=== PATIENT | male | born 1960 | race Caucasian/White ===

== ENCOUNTER 2017-08-11 16:34 | Inpatient (IN) | payer MEDICAID ==
[~2017-08-11] VITALS: Ht 5787.1 cm; Wt 134.3 kg
[2017-08-11] MEDS ORDERED: pantoprazole 40 MG vial IV ONE (16:55)
[2017-08-11] MEDS ORDERED: magnesium 4gm in 100ml NS 100 ML IV PRN (17:30)
[2017-08-11] MEDS ORDERED: haloperidol lactate 5mg/ml inj IM PRN (17:30)
[2017-08-11] MEDS ORDERED: magnesium Cl slow-release 64mg tablet PO PRN (17:30)
[2017-08-11] MEDS ORDERED: mag hydrox/Alum hydrox/simeth 30ml oral suspension PO PRN (17:30)
[2017-08-11] MEDS ORDERED: magnesium hydroxide 30ml (MOM) UD suspension PO PRN (17:30)
[2017-08-11] MEDS ORDERED: LORazepam 1 MG tablet PO PRN (17:30)
[2017-08-11] MEDS ORDERED: potassium Cl 40MEQ/NS 500ml 500 ML IV PRN ×2 (17:30)
[2017-08-11] MEDS ORDERED: dextrose 50%-water 50ml dispensing syringe IV PRN (17:30)
[2017-08-11] MEDS ORDERED: ondansetron/PF 4mg/2ml inj IV PRN (17:30)
[2017-08-11] MEDS ORDERED: magnesium 2GM in 50ml NS 50 ML IV PRN (17:30)
[2017-08-11] MEDS ORDERED: potassium Cl 20 mEq SR tablet PO PRN ×2 (17:30)
[2017-08-11] MEDS ORDERED: haloperidol 5mg tablet PO PRN (17:30)
[2017-08-11] MEDS ORDERED: thiamine 100mg/ml 2ml inj. IV ONE (17:30)
[2017-08-11] MEDS ORDERED: morphine 4 MG/ML inj SYRINge IV PRN (17:30)
[2017-08-11] MEDS ORDERED: acetaminophen 325mg tablet PO PRN (17:30)
[2017-08-11] MEDS ORDERED: LORazepam 2 mg/ml vial IV PRN (17:30)
[2017-08-11] MEDS ORDERED: NO HOME MEDS (18:05)
[2017-08-11 18:14] LABS: RED BLOOD COUNT 2.99 X10'6 (4.70-6.10); RETICULOCYTE % (AUTO) 2.9 % (0.5-1.5)
[2017-08-11 18:22] LABS: HEMOGLOBIN A1C 4.5 % (4.5-6.2)
[2017-08-11 18:24] LABS: INR 1.9 INR; PARTIAL THROMBOPLASTIN TIME 33 SECONDS (22-32); PROTHROMBIN TIME 19.2 SECONDS (9.0-12.0)
[2017-08-11 18:26] LABS: BILIRUBIN,DIRECT 4.5 MG/DL (0-0.3)
[2017-08-11 20:30] VITALS: BP 142/70
[2017-08-11] MEDS: morphine 4 MG/ML inj SYRINge IV PRN (22:14)
[2017-08-12] VITALS (10 sets, daily range): BP systolic 106–158; BP diastolic 52–94
[2017-08-12 05:33] LABS: BASOPHILS % (AUTO) 0.3 % (0-1); EOSINOPHILS # (AUTO) 0.1 X10'3 (0-0.9); EOSINOPHILS % (AUTO) 1.4 % (0-6); HEMATOCRIT 28.5 % (42.0-52.0); LYMPHOCYTES # (AUTO) 1.5 X10'3 (1.1-4.8); LYMPHOCYTES % (AUTO) 32.7 % (21-51); MEAN CORPUSCULAR HEMOGLOBIN 39.5 PG (27.0-31.0); MEAN PLATELET VOLUME 7.8 FL (7.4-10.4); MONOCYTES # (AUTO) 0.5 X10'3 (0-0.9); NEUTROPHILS # (AUTO) 2.5 X10'3 (1.8-7.7); NEUTROPHILS % (AUTO) 54.6 % (42-75); PLATELET COUNT 55 X10'3 (140-440); RED BLOOD COUNT 2.52 X10'6 (4.70-6.10); WHITE BLOOD COUNT 4.6 X10'3 (4.5-11.0)
[2017-08-12 05:44] LABS: INR 2.1 INR; PARTIAL THROMBOPLASTIN TIME 40 SECONDS (22-32); PROTHROMBIN TIME 21.4 SECONDS (9.0-12.0)
[2017-08-12 05:54] LABS: ALANINE AMINOTRANSFERASE 98 U/L (12-78); ALBUMIN 1.7 G/DL (3.4-5.0); ALKALINE PHOSPHATASE 110 IU/L (46-116); ANION GAP 10 (8-16); ASPARTATE AMINO TRANSFERASE 150 U/L (10-37); BILIRUBIN,TOTAL 6.7 MG/DL (0.1-1.0); BLOOD UREA NITROGEN 12 MG/DL (7-18); BUN/CREATININE RATIO 14.3 (5.4-32.0); CHLORIDE 102 MMOL/L (99-107); CREATININE 0.84 MG/DL (0.60-1.10); GLUCOSE 120 MG/DL (70-104); HDL CHOLESTEROL 16 MG/DL (35-60); LDL CHOLESTEROL 67 MG/DL (50-100); MAGNESIUM 1.7 MG/DL (1.5-2.4); POTASSIUM 3.6 MMOL/L (3.5-5.1); SODIUM 134 MMOL/L (135-145); TOTAL CARBON DIOXIDE 22.5 MMOL/L (24-32); eGFR > 90 ML/MIN
[2017-08-12 06:20] LABS: ALBUMIN/GLOBULIN RATIO 0.4 (1.1-1.5); CHOL/HDL RATIO 6.3 (0.00-4.99); CHOLESTEROL 101 MG/DL (0-200); TOTAL PROTEIN 6.5 G/DL (6.4-8.2); TRIGLYCERIDES 56 MG/DL (20-135)
[2017-08-12] MEDS: pantoprazole 40 MG vial IV SCH (07:33)
[2017-08-12] MEDS: K and/or MAG REPLACEMENT MC SCH (07:41)
[2017-08-12] MEDS ORDERED: SINCALIDE IV ONE (07:45)
[2017-08-12] MEDS ORDERED: NORMAL SALINE IV ONE (07:45)
[2017-08-12 08:13] LABS: LIPASE 738 U/L (73-393)
[2017-08-12] MEDS ORDERED: LIDOcaine 1%/PF (10mg/ml) 5ml vial ONE (09:34)
[2017-08-12 11:39] LABS: GLUCOSE,BODY FLUID 147 MG/DL
[2017-08-12 11:42] LABS: LYMPHOCYTES,BODY FLUID 39 %; MONOCYTES,BODY FLUID 53 %; NEUTROPHILS,BODY FLUID 8 %
[2017-08-12 11:43] LABS: BFAPPEAR HAZY; BFCOLOR YELLOW
[2017-08-12 11:44] LABS: BF MESOTHELIAL CELLS MANY; BF RBC COUNT 573 /CU MM; BF WBC COUNT 66 /CU MM (0-1000); BFVOLUME 60 ML
[2017-08-12 12:03] LABS: TOTAL PROTEIN,BODY FLUID < 2.0 G/DL
[2017-08-12] MEDS: morphine 4 MG/ML inj SYRINge IV PRN (18:49)
[2017-08-13] VITALS: BP 124/79
[2017-08-13] MEDS: morphine 4 MG/ML inj SYRINge IV PRN (01:50)
[2017-08-13 05:37] LABS: BASOPHILS % (AUTO) 0.3 % (0-1); EOSINOPHILS # (AUTO) 0.1 X10'3 (0-0.9); EOSINOPHILS % (AUTO) 2.1 % (0-6); HEMATOCRIT 29.7 % (42.0-52.0); HEMOGLOBIN 10.4 g/dl (14.0-17.9); LYMPHOCYTES # (AUTO) 1.5 X10'3 (1.1-4.8); LYMPHOCYTES % (AUTO) 36.8 % (21-51); MEAN CORPUSCULAR HEMOGLOBIN 39.3 PG (27.0-31.0); MEAN CORPUSCULAR HGB CONC 34.8 % (33.0-36.5); MEAN PLATELET VOLUME 7.5 FL (7.4-10.4); MONOCYTES # (AUTO) 0.5 X10'3 (0-0.9); NEUTROPHILS % (AUTO) 48.8 % (42-75); RED BLOOD COUNT 2.63 X10'6 (4.70-6.10); RED CELL DISTRIBUTION WIDTH 16.2 % (11.5-14.5); WHITE BLOOD COUNT 4.1 X10'3 (4.5-11.0)
[2017-08-13 05:41] LABS: PLATELET COUNT 43 X10'3 (140-440)
[2017-08-13 05:48] LABS: PARTIAL THROMBOPLASTIN TIME 41 SECONDS (22-32); PROTHROMBIN TIME 20.4 SECONDS (9.0-12.0)
[2017-08-13 05:58] LABS: ALANINE AMINOTRANSFERASE 90 U/L (12-78); ALBUMIN 1.7 G/DL (3.4-5.0); ALKALINE PHOSPHATASE 105 IU/L (46-116); ANION GAP 7 (8-16); ASPARTATE AMINO TRANSFERASE 126 U/L (10-37); BILIRUBIN,TOTAL 5.8 MG/DL (0.1-1.0); BLOOD UREA NITROGEN 9 MG/DL (7-18); CALCIUM 7.9 MG/DL (8.5-10.1); CHLORIDE 102 MMOL/L (99-107); CREATININE 0.75 MG/DL (0.60-1.10); GLUCOSE 106 MG/DL (70-104); LIPASE 454 U/L (73-393); MAGNESIUM 1.6 MG/DL (1.5-2.4); POTASSIUM 3.7 MMOL/L (3.5-5.1); SODIUM 133 MMOL/L (135-145); TOTAL CARBON DIOXIDE 23.8 MMOL/L (24-32); eGFR > 90 ML/MIN
[2017-08-13 06:02] LABS: ALBUMIN/GLOBULIN RATIO 0.4 (1.1-1.5); TOTAL PROTEIN 6.2 G/DL (6.4-8.2)
[2017-08-13 06:10] LABS: ANISOCYTOSIS 1+; PLATELET ESTIMATE DECREASED; TARGET CELLS FEW
[2017-08-13 06:55] VITALS: BP 104/62
[2017-08-13] MEDS: pantoprazole 40 MG vial IV SCH (07:26)
[2017-08-13] MEDS: K and/or MAG REPLACEMENT MC SCH (07:32)
[2017-08-13] MEDS ORDERED: PANT40SU2 PO (08:53)
[2017-08-13 11:30] VITALS: BP 131/89
[2017-08-14 11:43] LABS: HBSAG SCREEN Negative (Negative); HEP A AB, IGM Negative (Negative); HEP B CORE AB, IGM Negative (Negative); HEP B CORE AB, TOT Negative (Negative); HEPATITIS C ANTIBODY 0.2 s/co ratio (0.0-0.9)
== END 2017-08-13 12:40 | disposition home or self-care (01) | DRG 264 ==
LOC: ER 16:35 → ED HOLD 17:28 → EDBEDREQ 19:32 → MED 3N 20:49
PROVIDERS: ADMIT Legal Medicine; ATTEND Internal Medicine
PROC: 0W9G3ZX Drainage of Peritoneal Cavity, Percutaneous Approach, Diagnostic (ICD-10-PCS; principal; 2017-08-12)
PROC: CF141ZZ Planar Nuclear Medicine Imaging of Gallbladder using Technetium 99m (Tc-99m) (ICD-10-PCS; 2017-08-12)
DX: R18.8 Other ascites (principal); D69.59 Other secondary thrombocytopenia; K85.90 Acute pancreatitis without necrosis or infection, unspecified; E66.01 Morbid (severe) obesity due to excess calories; E87.1 Hypo-osmolality and hyponatremia; R16.2 Hepatomegaly with splenomegaly, not elsewhere classified; K70.9 Alcoholic liver disease, unspecified; F10.20 Alcohol dependence, uncomplicated; D63.8 Anemia in other chronic diseases classified elsewhere; E78.00 Pure hypercholesterolemia, unspecified; F41.9 Anxiety disorder, unspecified; I10 Essential (primary) hypertension; Z86.73 Personal history of transient ischemic attack (TIA), and cerebral infarction without residual deficits; Z79.899 Other long term (current) drug therapy
CPT/HCPCS: 36415; 49083; 76700; 78227; 80053; 80061; 80074; 82248; 82607; 82746; 82945; 82948; 83036; 83540; 83550; 83690; 83735; 83880; 84155; 84157; 84165; 85025; 85045; 85610; 85730; 86704; 87070; 89051; 93005; 93306; 99285; A4421; A6449; A9537; C9113; J2001; J2270; J2805; J3411; J7040

== ENCOUNTER → 2017-08-11 | Emergency (ER) | payer MEDICAID ==
[~2017-08-11] VITALS: Ht 175.3 cm; Wt 134.3 kg
[~2017-08-11] MED LIST: NO HOME MEDS; PANT40SU2 PO; iohexol 300mg/ml 100ml inj. ONE
[2017-08-11 09:47] LABS: BASOPHILS % (AUTO) 0.3 % (0-1); EOSINOPHILS # (AUTO) 0.1 X10'3 (0-0.9); EOSINOPHILS % (AUTO) 1.3 % (0-6); HEMATOCRIT 36.1 % (42.0-52.0); HEMOGLOBIN 12.7 g/dl (14.0-17.9); LYMPHOCYTES # (AUTO) 1.3 X10'3 (1.1-4.8); LYMPHOCYTES % (AUTO) 17.7 % (21-51); MEAN CORPUSCULAR HEMOGLOBIN 39.1 PG (27.0-31.0); MEAN CORPUSCULAR HGB CONC 35.2 % (33.0-36.5); MEAN CORPUSCULAR VOLUME 111.2 FL (78-98); MEAN PLATELET VOLUME 7.7 FL (7.4-10.4); MONOCYTES # (AUTO) 0.5 X10'3 (0-0.9); MONOCYTES % (AUTO) 6.1 % (2-12); NEUTROPHILS # (AUTO) 5.6 X10'3 (1.8-7.7); NEUTROPHILS % (AUTO) 74.6 % (42-75); PLATELET COUNT 91 X10'3 (140-440); RED BLOOD COUNT 3.25 X10'6 (4.70-6.10); RED CELL DISTRIBUTION WIDTH 16.4 % (11.5-14.5); WHITE BLOOD COUNT 7.5 X10'3 (4.5-11.0)
[2017-08-11 09:58] LABS: INR 1.8 INR; PARTIAL THROMBOPLASTIN TIME 32 SECONDS (22-32); PLATELET ESTIMATE DECREASED
[2017-08-11 10:00] LABS: ANISOCYTOSIS 1+; POLYCHROMASIA 1+
[2017-08-11 10:01] LABS: ALANINE AMINOTRANSFERASE 130 U/L (12-78); ALBUMIN 2.4 G/DL (3.4-5.0); ALKALINE PHOSPHATASE 172 IU/L (46-116); ANION GAP 11 (8-16); ASPARTATE AMINO TRANSFERASE 215 U/L (10-37); BILIRUBIN,TOTAL 7.2 MG/DL (0.1-1.0); BLOOD UREA NITROGEN 12 MG/DL (7-18); BUN/CREATININE RATIO 10.8 (5.4-32.0); CALCIUM 8.6 MG/DL (8.5-10.1); CHLORIDE 98 MMOL/L (99-107); CREATININE 1.11 MG/DL (0.60-1.10); GLUCOSE 138 MG/DL (70-104); ROULEAUX 1+; SODIUM 133 MMOL/L (135-145); SPHEROCYTES FEW; TARGET CELLS 1+; TOTAL CARBON DIOXIDE 23.8 MMOL/L (24-32); eGFR 69 ML/MIN
[2017-08-11 10:03] LABS: ALBUMIN/GLOBULIN RATIO 0.4 (1.1-1.5); POTASSIUM 3.6 MMOL/L (3.5-5.1); TOTAL PROTEIN 8.8 G/DL (6.4-8.2)
[2017-08-11 10:36] LABS: LIPASE 1098 U/L (73-393)
[2017-08-11 13:45] VITALS: BP 164/82
== END | disposition left against medical advice (07) ==
LOC: ER 09:03
DX: K85.90 Acute pancreatitis without necrosis or infection, unspecified (principal); R14.0 Abdominal distension (gaseous); E78.00 Pure hypercholesterolemia, unspecified; I10 Essential (primary) hypertension; Z86.73 Personal history of transient ischemic attack (TIA), and cerebral infarction without residual deficits
CPT/HCPCS: 36415; 71045; 74177; 80053; 83690; 84484; 85025; 85610; 85730; 93005; 99285; Q9967

== ENCOUNTER 2017-08-13 19:25 | Inpatient (IN) | payer MEDICAID ==
[~2017-08-13] VITALS: Ht 175.3 cm; Wt 126.8 kg
[~2017-08-13 19:25] MED LIST changes: -iohexol 300mg/ml 100ml inj. ONE
[2017-08-13 21:27] LABS: BASOPHILS % (AUTO) 0.3 % (0-1); EOSINOPHILS # (AUTO) 0.1 X10'3 (0-0.9); EOSINOPHILS % (AUTO) 1.5 % (0-6); HEMATOCRIT 36.7 % (42.0-52.0); HEMOGLOBIN 12.7 g/dl (14.0-17.9); LYMPHOCYTES # (AUTO) 1.6 X10'3 (1.1-4.8); LYMPHOCYTES % (AUTO) 24.6 % (21-51); MEAN CORPUSCULAR HEMOGLOBIN 39.3 PG (27.0-31.0); MEAN CORPUSCULAR HGB CONC 34.5 % (33.0-36.5); MEAN CORPUSCULAR VOLUME 113.7 FL (78-98); MEAN PLATELET VOLUME 8.1 FL (7.4-10.4); MONOCYTES # (AUTO) 0.8 X10'3 (0-0.9); MONOCYTES % (AUTO) 11.5 % (2-12); NEUTROPHILS # (AUTO) 4.2 X10'3 (1.8-7.7); NEUTROPHILS % (AUTO) 62.1 % (42-75); PLATELET COUNT 88 X10'3 (140-440); RED BLOOD COUNT 3.23 X10'6 (4.70-6.10); RED CELL DISTRIBUTION WIDTH 16.4 % (11.5-14.5); WHITE BLOOD COUNT 6.7 X10'3 (4.5-11.0)
[2017-08-13 21:32] LABS: INR 1.9 INR; PARTIAL THROMBOPLASTIN TIME 33 SECONDS (22-32)
[2017-08-13 21:44] LABS: ALANINE AMINOTRANSFERASE 118 U/L (12-78); ALBUMIN 2.3 G/DL (3.4-5.0); ALBUMIN/GLOBULIN RATIO 0.4 (1.1-1.5); ALKALINE PHOSPHATASE 179 IU/L (46-116); ANION GAP 10 (8-16); ASPARTATE AMINO TRANSFERASE 173 U/L (10-37); BILIRUBIN,TOTAL 6.2 MG/DL (0.1-1.0); BLOOD UREA NITROGEN 10 MG/DL (7-18); BUN/CREATININE RATIO 9.6 (5.4-32.0); CALCIUM 8.8 MG/DL (8.5-10.1); CHLORIDE 99 MMOL/L (99-107); CREATININE 1.04 MG/DL (0.60-1.10); GLUCOSE 125 MG/DL (70-104); LIPASE 827 U/L (73-393); POTASSIUM 4.9 MMOL/L (3.5-5.1); SODIUM 135 MMOL/L (135-145); TOTAL CARBON DIOXIDE 25.6 MMOL/L (24-32); TOTAL PROTEIN 8.2 G/DL (6.4-8.2); eGFR 74 ML/MIN
[2017-08-13] MEDS ORDERED: ondansetron/PF 4mg/2ml inj IV ONE ×2 (22:35→23:25)
[2017-08-13] MEDS ORDERED: normal saline 1000ML IV soln IVB ONE (22:35)
[2017-08-14] MEDS ORDERED: potassium Cl 20 mEq SR tablet PO PRN ×2 (00:15)
[2017-08-14] MEDS ORDERED: ondansetron/PF 4mg/2ml inj IV PRN (00:15)
[2017-08-14] MEDS ORDERED: potassium Cl 40MEQ/NS 500ml 500 ML IV PRN ×2 (00:15)
[2017-08-14] MEDS: K and/or MAG REPLACEMENT MC SCH (08:00)
[2017-08-14] MEDS: pantoprazole 40mg Tablet.DR PO SCH (08:42)
[2017-08-14] MEDS: spironolactone 50 MG tablet PO SCH (08:43)
[2017-08-14] MEDS: furosemide 20MG tablet PO SCH (08:43)
[2017-08-14] MEDS: HYDROcodone/acetaminophen 5mg/325mg tablet PO PRN ×2 (11:40→17:51)
[2017-08-14 13:37] VITALS: BP 169/92
[2017-08-14 15:50] VITALS: BP 142/74
[2017-08-14] MEDS: nystatin 15 GM powder TP SCH ×2 (17:29→21:00)
[2017-08-14 20:00] VITALS: BP 151/86
[2017-08-14 23:30] VITALS: BP 139/77
[2017-08-15] MEDS: Melatonin 3mg tablet PO PRN (00:12)
[2017-08-15] MEDS: HYDROcodone/acetaminophen 5mg/325mg tablet PO PRN ×3 (00:13→16:55)
[2017-08-15] MEDS: acetaminophen 325mg tablet PO PRN (05:41)
[2017-08-15 05:56] LABS: BASOPHILS % (AUTO) 0.5 % (0-1); EOSINOPHILS # (AUTO) 0.1 X10'3 (0-0.9); EOSINOPHILS % (AUTO) 1.8 % (0-6); HEMATOCRIT 28.8 % (42.0-52.0); HEMOGLOBIN 10.1 g/dl (14.0-17.9); LYMPHOCYTES # (AUTO) 1.4 X10'3 (1.1-4.8); LYMPHOCYTES % (AUTO) 37.4 % (21-51); MEAN CORPUSCULAR HEMOGLOBIN 39.5 PG (27.0-31.0); MEAN CORPUSCULAR HGB CONC 35.1 % (33.0-36.5); MEAN CORPUSCULAR VOLUME 112.7 FL (78-98); MEAN PLATELET VOLUME 7.9 FL (7.4-10.4); MONOCYTES # (AUTO) 0.5 X10'3 (0-0.9); MONOCYTES % (AUTO) 13.9 % (2-12); NEUTROPHILS # (AUTO) 1.8 X10'3 (1.8-7.7); NEUTROPHILS % (AUTO) 46.4 % (42-75); PLATELET COUNT 58 X10'3 (140-440); RED BLOOD COUNT 2.56 X10'6 (4.70-6.10); WHITE BLOOD COUNT 3.8 X10'3 (4.5-11.0)
[2017-08-15 06:04] LABS: ALANINE AMINOTRANSFERASE 83 U/L (12-78); ALBUMIN 1.8 G/DL (3.4-5.0); ALKALINE PHOSPHATASE 112 IU/L (46-116); ANION GAP 7 (8-16); ASPARTATE AMINO TRANSFERASE 111 U/L (10-37); BILIRUBIN,TOTAL 5.7 MG/DL (0.1-1.0); BLOOD UREA NITROGEN 11 MG/DL (7-18); BUN/CREATININE RATIO 11.8 (5.4-32.0); CALCIUM 7.8 MG/DL (8.5-10.1); CHLORIDE 100 MMOL/L (99-107); CREATININE 0.93 MG/DL (0.60-1.10); GLUCOSE 99 MG/DL (70-104); POTASSIUM 3.8 MMOL/L (3.5-5.1); SODIUM 132 MMOL/L (135-145); TOTAL CARBON DIOXIDE 24.6 MMOL/L (24-32); eGFR 84 ML/MIN
[2017-08-15 06:06] LABS: ALBUMIN/GLOBULIN RATIO 0.4 (1.1-1.5); TOTAL PROTEIN 6.3 G/DL (6.4-8.2)
[2017-08-15 07:03] LABS: ANISOCYTOSIS 1+; PLATELET ESTIMATE DECREASED; POLYCHROMASIA FEW
[2017-08-15 07:49] VITALS: BP 128/63
[2017-08-15] MEDS: K and/or MAG REPLACEMENT MC SCH (08:00)
[2017-08-15] MEDS: spironolactone 50 MG tablet PO SCH (08:09)
[2017-08-15] MEDS: pantoprazole 40mg Tablet.DR PO SCH (08:09)
[2017-08-15] MEDS: furosemide 20MG tablet PO SCH (08:09)
[2017-08-15] MEDS: nystatin 15 GM powder TP SCH ×3 (08:10→21:00)
[2017-08-15 11:00] VITALS: BP 174/85
[2017-08-15 20:00] VITALS: BP 145/82
[2017-08-16] VITALS: BP 120/77
[2017-08-16] MEDS: HYDROcodone/acetaminophen 5mg/325mg tablet PO PRN ×4 (01:10→20:06)
[2017-08-16] MEDS: Melatonin 3mg tablet PO PRN (02:34)
[2017-08-16 06:01] LABS: BASOPHILS % (AUTO) 0.5 % (0-1); EOSINOPHILS # (AUTO) 0.1 X10'3 (0-0.9); HEMATOCRIT 29.5 % (42.0-52.0); HEMOGLOBIN 10.2 g/dl (14.0-17.9); LYMPHOCYTES # (AUTO) 1.3 X10'3 (1.1-4.8); LYMPHOCYTES % (AUTO) 34.9 % (21-51); MEAN CORPUSCULAR HEMOGLOBIN 39.4 PG (27.0-31.0); MEAN CORPUSCULAR HGB CONC 34.8 % (33.0-36.5); MEAN CORPUSCULAR VOLUME 113.4 FL (78-98); MEAN PLATELET VOLUME 8.3 FL (7.4-10.4); MONOCYTES # (AUTO) 0.8 X10'3 (0-0.9); MONOCYTES % (AUTO) 19.6 % (2-12); NEUTROPHILS # (AUTO) 1.7 X10'3 (1.8-7.7); PLATELET COUNT 62 X10'3 (140-440); RED CELL DISTRIBUTION WIDTH 16.1 % (11.5-14.5); WHITE BLOOD COUNT 3.9 X10'3 (4.5-11.0)
[2017-08-16 06:32] LABS: ALANINE AMINOTRANSFERASE 84 U/L (12-78); ALBUMIN 1.8 G/DL (3.4-5.0); ALBUMIN/GLOBULIN RATIO 0.4 (1.1-1.5); ALKALINE PHOSPHATASE 120 IU/L (46-116); ANION GAP 8 (8-16); ASPARTATE AMINO TRANSFERASE 124 U/L (10-37); BILIRUBIN,TOTAL 5.7 MG/DL (0.1-1.0); BLOOD UREA NITROGEN 12 MG/DL (7-18); BUN/CREATININE RATIO 12.1 (5.4-32.0); CALCIUM 7.8 MG/DL (8.5-10.1); CHLORIDE 100 MMOL/L (99-107); CREATININE 0.99 MG/DL (0.60-1.10); GLUCOSE 106 MG/DL (70-104); POTASSIUM 4.8 MMOL/L (3.5-5.1); SODIUM 133 MMOL/L (135-145); TOTAL CARBON DIOXIDE 25.1 MMOL/L (24-32); TOTAL PROTEIN 6.6 G/DL (6.4-8.2); eGFR 78 ML/MIN
[2017-08-16] MEDS: K and/or MAG REPLACEMENT MC SCH ×2 (06:57→08:27)
[2017-08-16 07:21] VITALS: BP 120/57
[2017-08-16] MEDS: pantoprazole 40mg Tablet.DR PO SCH (08:25)
[2017-08-16] MEDS: nystatin 15 GM powder TP SCH ×3 (08:25→20:07)
[2017-08-16] MEDS: furosemide 20MG tablet PO SCH (08:25)
[2017-08-16] MEDS: spironolactone 50 MG tablet PO SCH (08:25)
[2017-08-16 08:30] LABS: TOTAL CELLS COUNTED 100
[2017-08-16 08:33] LABS: ANISOCYTOSIS 1+; PLATELET ESTIMATE DECREASED
[2017-08-16 11:00] VITALS: BP 158/93
[2017-08-16 18:00] VITALS: BP 172/94
[2017-08-16] MEDS: acetaminophen 325mg tablet PO PRN (20:06)
[2017-08-17] VITALS: BP 120/64
[2017-08-17] MEDS: HYDROcodone/acetaminophen 5mg/325mg tablet PO PRN ×2 (03:35→10:21)
[2017-08-17 06:08] LABS: HEMOGLOBIN 10.4 g/dl (14.0-17.9); MEAN CORPUSCULAR HEMOGLOBIN 39.4 PG (27.0-31.0); MEAN CORPUSCULAR HGB CONC 34.7 % (33.0-36.5); MEAN CORPUSCULAR VOLUME 113.4 FL (78-98); MEAN PLATELET VOLUME 8.1 FL (7.4-10.4); PLATELET COUNT 60 X10'3 (140-440); RED BLOOD COUNT 2.65 X10'6 (4.70-6.10); RED CELL DISTRIBUTION WIDTH 15.8 % (11.5-14.5); WHITE BLOOD COUNT 3.3 X10'3 (4.5-11.0)
[2017-08-17 06:31] LABS: ALANINE AMINOTRANSFERASE 77 U/L (12-78); ALBUMIN 1.8 G/DL (3.4-5.0); ALBUMIN/GLOBULIN RATIO 0.4 (1.1-1.5); ALKALINE PHOSPHATASE 113 IU/L (46-116); ANION GAP 9 (8-16); ASPARTATE AMINO TRANSFERASE 100 U/L (10-37); BLOOD UREA NITROGEN 11 MG/DL (7-18); BUN/CREATININE RATIO 12.4 (5.4-32.0); CALCIUM 7.8 MG/DL (8.5-10.1); CHLORIDE 100 MMOL/L (99-107); CREATININE 0.89 MG/DL (0.60-1.10); GLUCOSE 100 MG/DL (70-104); POTASSIUM 3.7 MMOL/L (3.5-5.1); SODIUM 133 MMOL/L (135-145); TOTAL CARBON DIOXIDE 24.2 MMOL/L (24-32); TOTAL PROTEIN 6.6 G/DL (6.4-8.2); eGFR 88 ML/MIN
[2017-08-17 07:00] VITALS: BP 158/88
[2017-08-17 07:38] LABS: ANISOCYTOSIS 1+; PLATELET ESTIMATE DECREASED; TOTAL CELLS COUNTED 100
[2017-08-17] MEDS: pantoprazole 40mg Tablet.DR PO SCH (08:15)
[2017-08-17] MEDS: furosemide 20MG tablet PO SCH (08:16)
[2017-08-17] MEDS: nystatin 15 GM powder TP SCH ×2 (08:18→13:00)
[2017-08-17] MEDS: spironolactone 50 MG tablet PO SCH (08:18)
[2017-08-17] MEDS ORDERED: LACT10SO32 PO (08:50)
[2017-08-17] MEDS ORDERED: FURO20TA4 PO (08:50)
[2017-08-17] MEDS ORDERED: PANT-47 PO (08:50)
[2017-08-17] MEDS ORDERED: NYSPWD TP (08:50)
[2017-08-17] MEDS ORDERED: PANT40TA4 PO (08:50)
[2017-08-17 11:00] VITALS: BP 177/89
[2017-08-17] MEDS ORDERED: SPIR50TA3 PO (12:15)
[2017-08-17 12:30] VITALS: BP 136/76
[2017-08-17] MEDS ORDERED: lactulose 20gm/30ml cup PO SCH (14:00)
== END 2017-08-17 14:00 | disposition home or self-care (01) | DRG 252 ==
LOC: ER 19:26 → ED HOLD 08-14 00:13 → OBSVTOIN 08-14 00:13 → EDBEDREQ 08-14 12:45 → MED 3N 08-14 13:10
PROVIDERS: ADMIT Family Medicine; ATTEND Internal Medicine
DX: K91.89 Other postprocedural complications and disorders of digestive system (principal); E43 Unspecified severe protein-calorie malnutrition; D68.9 Coagulation defect, unspecified; D69.6 Thrombocytopenia, unspecified; E87.1 Hypo-osmolality and hyponatremia; K70.31 Alcoholic cirrhosis of liver with ascites; Z68.41 Body mass index [BMI] 40.0-44.9, adult; Y83.8 Other surgical procedures as the cause of abnormal reaction of the patient, or of later complication, without mention of misadventure at the time of the procedure; I10 Essential (primary) hypertension; K85.90 Acute pancreatitis without necrosis or infection, unspecified; E78.00 Pure hypercholesterolemia, unspecified; K70.9 Alcoholic liver disease, unspecified; Z80.9 Family history of malignant neoplasm, unspecified; Z83.3 Family history of diabetes mellitus; Z86.73 Personal history of transient ischemic attack (TIA), and cerebral infarction without residual deficits; Z79.899 Other long term (current) drug therapy
CPT/HCPCS: 36415; 71045; 80053; 82140; 83690; 83880; 85025; 85610; 85730; 96374; 99285; A4421; A6253; A6258; A6449; J2405; J7030

== ENCOUNTER 2017-08-22 22:36 | Inpatient (IN) | payer MEDICAID ==
[~2017-08-22] VITALS: Ht 175.3 cm; Wt 126.4 kg
[~2017-08-22 22:36] MED LIST changes: +FURO20TA4 PO; +LACT10SO32 PO; -NO HOME MEDS; +NYSPWD TP; +PANT-47 PO; -PANT40SU2 PO; +PANT40TA4 PO; +SPIR50TA3 PO
[2017-08-22] MEDS ORDERED: ondansetron/PF 4mg/2ml inj IV ONE (22:50)
[2017-08-22] MEDS ORDERED: morphine 4 MG/ML inj SYRINge IV ONE (22:50)
[2017-08-22 23:22] LABS: BASOPHILS % (AUTO) 0.3 % (0-1); EOSINOPHILS # (AUTO) 0.1 X10'3 (0-0.9); EOSINOPHILS % (AUTO) 1.2 % (0-6); HEMATOCRIT 34.1 % (42.0-52.0); LYMPHOCYTES % (AUTO) 22.2 % (21-51); MEAN CORPUSCULAR HGB CONC 35.1 % (33.0-36.5); MEAN CORPUSCULAR VOLUME 111.1 FL (78-98); MEAN PLATELET VOLUME 7.7 FL (7.4-10.4); MONOCYTES # (AUTO) 0.5 X10'3 (0-0.9); MONOCYTES % (AUTO) 10.9 % (2-12); NEUTROPHILS # (AUTO) 2.8 X10'3 (1.8-7.7); NEUTROPHILS % (AUTO) 65.4 % (42-75); PLATELET COUNT 86 X10'3 (140-440); RED BLOOD COUNT 3.07 X10'6 (4.70-6.10); RED CELL DISTRIBUTION WIDTH 15.1 % (11.5-14.5); WHITE BLOOD COUNT 4.3 X10'3 (4.5-11.0)
[2017-08-22 23:32] LABS: INR 1.8 INR; PARTIAL THROMBOPLASTIN TIME 37 SECONDS (22-32); PROTHROMBIN TIME 18.7 SECONDS (9.0-12.0)
[2017-08-22 23:35] LABS: ANISOCYTOSIS 1+; PLATELET ESTIMATE DECREASED
[2017-08-22 23:44] LABS: ALANINE AMINOTRANSFERASE 72 U/L (12-78); ALBUMIN 2.2 G/DL (3.4-5.0); ALKALINE PHOSPHATASE 142 IU/L (46-116); ANION GAP 9 (8-16); ASPARTATE AMINO TRANSFERASE 97 U/L (10-37); BILIRUBIN,TOTAL 6.2 MG/DL (0.1-1.0); BLOOD UREA NITROGEN 18 MG/DL (7-18); BUN/CREATININE RATIO 16.2 (5.4-32.0); CALCIUM 8.4 MG/DL (8.5-10.1); CHLORIDE 101 MMOL/L (99-107); CREATINE KINASE 161 U/L (39-308); CREATININE 1.11 MG/DL (0.60-1.10); GLUCOSE 134 MG/DL (70-104); LIPASE 325 U/L (73-393); MAGNESIUM 1.4 MG/DL (1.5-2.4); SODIUM 135 MMOL/L (135-145); TOTAL CARBON DIOXIDE 25.2 MMOL/L (24-32); eGFR 69 ML/MIN
[2017-08-22 23:45] LABS: ALBUMIN/GLOBULIN RATIO 0.4 (1.1-1.5); POTASSIUM 4.8 MMOL/L (3.5-5.1); TOTAL PROTEIN 8.1 G/DL (6.4-8.2)
[2017-08-22 23:52] LABS: ETHANOL < 0.010 GM/DL (0.0-0.010)
[2017-08-23] MEDS ORDERED: magnesium 2GM in 50ml NS 50 ML IV ONE (01:00)
[2017-08-23] MEDS ORDERED: iohexol 350MG/ML 100ml bottle IV ONE (01:11)
[2017-08-23] MEDS ORDERED: docusate sod 100mg capsule PO PRN (06:40)
[2017-08-23] MEDS ORDERED: acetaminophen 325mg tablet PO PRN (06:40)
[2017-08-23] MEDS ORDERED: ondansetron/PF 4mg/2ml inj IV PRN (06:40)
[2017-08-23] MEDS ORDERED: mag hydrox/Alum hydrox/simeth 30ml oral suspension PO PRN (06:40)
[2017-08-23 08:26] LABS: CLARITY,URINE CLEAR (Clear); COLOR,URINE AMBER (Yellow); GLUCOSE, URINE 100 mg/dl (Neg); KETONES,URINE TRACE mg/dl (Neg); LEUKOCYTE ESTERASE ,URINE NEGATIVE (Neg); OCCULT BLOOD,URINE NEGATIVE (Neg); PH,URINE 6.5 (4.8-8.0); PROTEIN,URINE 30 mg/dl (Neg)
[2017-08-23 08:27] LABS: NITRITES, URINE NEGATIVE (Neg); UA COLLECTION TYPE VOIDED
[2017-08-23 08:33] LABS: MUCUS STRANDS FEW /LPF (Neg); SQUAMOUS EPITHELIAL CELL,UR FEW /LPF (FEW)
[2017-08-23 08:34] LABS: BACTERIA,URINE FEW /HPF (Neg); RBC,URINE 0-2 /HPF (0-2); WBC,URINE 0-4 /HPF (0-4)
[2017-08-23] MEDS: furosemide 40mg/4ml inj IV SCH ×2 (08:54→20:19)
[2017-08-23] MEDS: pantoprazole 40mg Tablet.DR PO SCH (08:54)
[2017-08-23] MEDS: lactulose 20gm/30ml cup PO SCH ×3 (08:55→20:19)
[2017-08-23] MEDS ORDERED: LIDOcaine 1%/PF (10mg/ml) 5ml vial ONE (11:30)
[2017-08-23 12:00] VITALS: BP 123/93
[2017-08-23 12:20] VITALS: BP 145/73
[2017-08-23] MEDS: spironolactone 50 MG tablet PO SCH (14:26)
[2017-08-23 14:40] VITALS: BP 123/93
[2017-08-23] MEDS ORDERED: FLU VACC QS2017-18 36MOS UP/PF 60 MCG/0.5 ML SYRINGE IMVAC ONE (15:40)
[2017-08-23] MEDS ORDERED: pneumococcal 23-VAL P-sac vacc 25 mcg/0.5ml vial IMVAC ONE (15:40)
[2017-08-23 20:00] VITALS: BP 127/58
[2017-08-23] MEDS: HYDROmorphone inj. 0.5 MG/0.5 ML DISP.SYRIN IV PRN (20:19)
[2017-08-24] VITALS: BP 100/50
[2017-08-24] MEDS: lactulose 20gm/30ml cup PO SCH ×3 (01:54→14:22)
[2017-08-24 05:47] LABS: BASOPHILS % (AUTO) 0.6 % (0-1); EOSINOPHILS # (AUTO) 0.1 X10'3 (0-0.9); HEMATOCRIT 26.4 % (42.0-52.0); HEMOGLOBIN 9.3 g/dl (14.0-17.9); LYMPHOCYTES # (AUTO) 1.1 X10'3 (1.1-4.8); LYMPHOCYTES % (AUTO) 28.4 % (21-51); MEAN CORPUSCULAR HEMOGLOBIN 39.1 PG (27.0-31.0); MEAN CORPUSCULAR HGB CONC 35.1 % (33.0-36.5); MEAN CORPUSCULAR VOLUME 111.3 FL (78-98); MEAN PLATELET VOLUME 7.7 FL (7.4-10.4); MONOCYTES # (AUTO) 0.5 X10'3 (0-0.9); MONOCYTES % (AUTO) 13.3 % (2-12); NEUTROPHILS # (AUTO) 2.2 X10'3 (1.8-7.7); NEUTROPHILS % (AUTO) 55.7 % (42-75); PLATELET COUNT 62 X10'3 (140-440); RED BLOOD COUNT 2.37 X10'6 (4.70-6.10); RED CELL DISTRIBUTION WIDTH 14.7 % (11.5-14.5)
[2017-08-24 06:17] LABS: ALANINE AMINOTRANSFERASE 47 U/L (12-78); ALBUMIN 1.6 G/DL (3.4-5.0); ALKALINE PHOSPHATASE 93 IU/L (46-116); ANION GAP 8 (8-16); ASPARTATE AMINO TRANSFERASE 68 U/L (10-37); BILIRUBIN,TOTAL 5.5 MG/DL (0.1-1.0); BLOOD UREA NITROGEN 19 MG/DL (7-18); BUN/CREATININE RATIO 20.7 (5.4-32.0); CALCIUM 7.9 MG/DL (8.5-10.1); CHLORIDE 102 MMOL/L (99-107); CREATININE 0.92 MG/DL (0.60-1.10); GLUCOSE 122 MG/DL (70-104); POTASSIUM 3.8 MMOL/L (3.5-5.1); SODIUM 134 MMOL/L (135-145); TOTAL CARBON DIOXIDE 23.6 MMOL/L (24-32); eGFR 85 ML/MIN
[2017-08-24 06:20] LABS: ALBUMIN/GLOBULIN RATIO 0.4 (1.1-1.5); TOTAL PROTEIN 5.8 G/DL (6.4-8.2)
[2017-08-24 07:00] VITALS: BP 95/38
[2017-08-24 07:26] VITALS: BP 95/42
[2017-08-24] MEDS: spironolactone 50 MG tablet PO SCH (07:32)
[2017-08-24] MEDS: pantoprazole 40mg Tablet.DR PO SCH (07:34)
[2017-08-24] MEDS: furosemide 40mg/4ml inj IV SCH (07:42)
[2017-08-24] MEDS: HYDROmorphone inj. 0.5 MG/0.5 ML DISP.SYRIN IV PRN ×2 (07:43→14:27)
[2017-08-24 07:46] LABS: ANISOCYTOSIS 1+; PLATELET ESTIMATE DECREASED
[2017-08-24 07:47] LABS: POLYCHROMASIA FEW; TARGET CELLS FEW
[2017-08-24 11:48] VITALS: BP 147/82
[2017-08-24] MEDS ORDERED: LACT10SO32 PO (11:55)
[2017-08-24] MEDS ORDERED: SPIR50TA3 PO (11:55)
[2017-08-24] MEDS ORDERED: PANT40TA4 PO (11:55)
[2017-08-24] MEDS ORDERED: FURO20TA4 PO (11:55)
== END 2017-08-24 16:13 | disposition home or self-care (01) | DRG 280 ==
LOC: ER 22:36 → ED HOLD 08-23 06:36 → SUR 3N 08-23 11:32
PROVIDERS: ADMIT Family Medicine; ATTEND Family Medicine
PROC: 0W9G3ZZ Drainage of Peritoneal Cavity, Percutaneous Approach (ICD-10-PCS; principal; 2017-08-23)
PROC: BW211ZZ Computerized Tomography (CT Scan) of Abdomen and Pelvis using Low Osmolar Contrast (ICD-10-PCS; 2017-08-23)
DX: K70.31 Alcoholic cirrhosis of liver with ascites (principal); E43 Unspecified severe protein-calorie malnutrition; N17.9 Acute kidney failure, unspecified; D68.4 Acquired coagulation factor deficiency; D69.6 Thrombocytopenia, unspecified; K72.90 Hepatic failure, unspecified without coma; E87.1 Hypo-osmolality and hyponatremia; Z68.41 Body mass index [BMI] 40.0-44.9, adult; I12.9 Hypertensive chronic kidney disease with stage 1 through stage 4 chronic kidney disease, or unspecified chronic kidney disease; N18.9 Chronic kidney disease, unspecified; E83.42 Hypomagnesemia; D63.8 Anemia in other chronic diseases classified elsewhere; E83.51 Hypocalcemia; R74.0 Nonspecific elevation of levels of transaminase and lactic acid dehydrogenase [LDH]; E66.01 Morbid (severe) obesity due to excess calories; E78.00 Pure hypercholesterolemia, unspecified; K76.0 Fatty (change of) liver, not elsewhere classified; Z83.3 Family history of diabetes mellitus; Z86.73 Personal history of transient ischemic attack (TIA), and cerebral infarction without residual deficits; Z23 Encounter for immunization; Z79.899 Other long term (current) drug therapy
CPT/HCPCS: 36415; 49083; 71045; 74177; 80053; 80320; 81001; 82140; 82550; 83690; 83735; 84484; 85025; 85610; 85730; 87070; 90732; 93005; 96374; 96375; 97116; 97161; 97530; 99285; A6213; J1170; J1940; J2001; J2270; J2405; J3475; J7030; Q2037; Q9967

== ENCOUNTER 2017-08-25 08:33 | Emergency (ER) | payer MEDICAID ==
[~2017-08-25] VITALS: Ht 175.3 cm; Wt 113.0 kg
[2017-08-25] MEDS ORDERED: HYDROcodone/acetaminophen 10/325mg tab PO ONE (10:00)
[2017-08-25] MEDS ORDERED: iohexol 300mg/ml 100ml inj. ONE (10:16)
[2017-08-25 11:48] VITALS: BP 127/78
[2017-08-26] MEDS ORDERED: MECL-111 PO (01:44)
[2017-08-26] MEDS ORDERED: ONDA4TAB9 PO (01:44)
== END 2017-08-25 13:31 | disposition home or self-care (01) ==
LOC: ER 08:34
DX: R10.9 Unspecified abdominal pain (principal); R18.8 Other ascites; I10 Essential (primary) hypertension; E78.00 Pure hypercholesterolemia, unspecified; Z86.73 Personal history of transient ischemic attack (TIA), and cerebral infarction without residual deficits; F17.210 Nicotine dependence, cigarettes, uncomplicated; Z79.899 Other long term (current) drug therapy; W19.XXXA Unspecified fall, initial encounter; Y93.89 Activity, other specified; Y92.89 Other specified places as the place of occurrence of the external cause; Y99.8 Other external cause status
CPT/HCPCS: 71100; 74177; 99284; J7030; Q9967

== ENCOUNTER 2017-08-25 23:19 | Emergency (ER) | payer MEDICAID ==
[~2017-08-25] VITALS: Ht 175.3 cm; Wt 120.0 kg
[2017-08-26] MEDS ORDERED: meclizine 12.5mg tablet PO ONE (01:40)
[2017-08-26] MEDS ORDERED: ondansetron 4mg rapidly disintigrating tab PO ONE (01:40)
[2017-08-26] MEDS ORDERED: MECL-111 PO (01:44)
[2017-08-26] MEDS ORDERED: ONDA4TAB9 PO (01:44)
[2017-08-26 02:00] VITALS: BP 138/77
== END 2017-08-26 02:01 | disposition home or self-care (01) ==
LOC: ER 23:19
DX: R18.8 Other ascites (principal); R42 Dizziness and giddiness; E78.00 Pure hypercholesterolemia, unspecified; I10 Essential (primary) hypertension; Z86.73 Personal history of transient ischemic attack (TIA), and cerebral infarction without residual deficits; Z79.899 Other long term (current) drug therapy
CPT/HCPCS: 93005; 99284; J8597

== ENCOUNTER 2017-08-26 17:35 | Emergency (ER) | payer MEDICAID ==
[~2017-08-26] VITALS: Ht 167.6 cm; Wt 130.0 kg
[~2017-08-26 17:35] MED LIST changes: +MECL-111 PO; +ONDA4TAB9 PO
[2017-08-26] MEDS ORDERED: ketorolac trometh inj. 60 MG/2 ML VIAL IM ONE (17:55)
[2017-08-26] MEDS ORDERED: HYDROcodone/acetaminophen 10/325mg tab PO ONE (17:55)
[2017-08-26 17:58] LABS: BASOPHILS % (AUTO) 0.2 % (0-1); EOSINOPHILS # (AUTO) 0.1 X10'3 (0-0.9); EOSINOPHILS % (AUTO) 0.9 % (0-6); HEMATOCRIT 33.9 % (42.0-52.0); HEMOGLOBIN 11.9 g/dl (14.0-17.9); LYMPHOCYTES # (AUTO) 1.5 X10'3 (1.1-4.8); LYMPHOCYTES % (AUTO) 23.8 % (21-51); MEAN CORPUSCULAR HGB CONC 35.1 % (33.0-36.5); MEAN PLATELET VOLUME 7.2 FL (7.4-10.4); MONOCYTES # (AUTO) 0.8 X10'3 (0-0.9); MONOCYTES % (AUTO) 11.8 % (2-12); NEUTROPHILS # (AUTO) 4.1 X10'3 (1.8-7.7); NEUTROPHILS % (AUTO) 63.3 % (42-75); PLATELET COUNT 94 X10'3 (140-440); RED BLOOD COUNT 3.05 X10'6 (4.70-6.10); RED CELL DISTRIBUTION WIDTH 15.2 % (11.5-14.5); WHITE BLOOD COUNT 6.5 X10'3 (4.5-11.0)
[2017-08-26 18:14] LABS: ALANINE AMINOTRANSFERASE 71 U/L (12-78); ALBUMIN 2.1 G/DL (3.4-5.0); ALKALINE PHOSPHATASE 129 IU/L (46-116); ANION GAP 10 (8-16); ASPARTATE AMINO TRANSFERASE 106 U/L (10-37); BILIRUBIN,TOTAL 6.9 MG/DL (0.1-1.0); BLOOD UREA NITROGEN 19 MG/DL (7-18); BUN/CREATININE RATIO 16.2 (5.4-32.0); CALCIUM 8.5 MG/DL (8.5-10.1); CHLORIDE 97 MMOL/L (99-107); CREATININE 1.17 MG/DL (0.60-1.10); GLUCOSE 142 MG/DL (70-104); SODIUM 132 MMOL/L (135-145); TOTAL CARBON DIOXIDE 24.6 MMOL/L (24-32); eGFR 64 ML/MIN
[2017-08-26 18:15] LABS: ALBUMIN/GLOBULIN RATIO 0.4 (1.1-1.5); TOTAL PROTEIN 7.9 G/DL (6.4-8.2)
[2017-08-26 18:34] VITALS: BP 150/89
== END 2017-08-26 18:36 | disposition home or self-care (01) ==
LOC: ER 17:36
DX: M25.551 Pain in right hip (principal); M25.511 Pain in right shoulder; E78.00 Pure hypercholesterolemia, unspecified; I10 Essential (primary) hypertension; F17.210 Nicotine dependence, cigarettes, uncomplicated; Z86.73 Personal history of transient ischemic attack (TIA), and cerebral infarction without residual deficits; Z79.899 Other long term (current) drug therapy
CPT/HCPCS: 36415; 80053; 85025; 96372; 99284; J1885

== ENCOUNTER 2017-08-28 10:22 | Emergency (ER) | payer MEDICAID ==
[~2017-08-28] VITALS: Ht 175.3 cm; Wt 109.1 kg
[2017-08-28 11:29] LABS: BASOPHILS % (AUTO) 0.2 % (0-1); EOSINOPHILS # (AUTO) 0.1 X10'3 (0-0.9); EOSINOPHILS % (AUTO) 1.4 % (0-6); HEMATOCRIT 23.9 % (42.0-52.0); HEMOGLOBIN 8.5 g/dl (14.0-17.9); LYMPHOCYTES # (AUTO) 1.4 X10'3 (1.1-4.8); LYMPHOCYTES % (AUTO) 23.5 % (21-51); MEAN CORPUSCULAR HEMOGLOBIN 39.3 PG (27.0-31.0); MEAN CORPUSCULAR HGB CONC 35.4 % (33.0-36.5); MEAN CORPUSCULAR VOLUME 111.1 FL (78-98); MEAN PLATELET VOLUME 7.6 FL (7.4-10.4); MONOCYTES # (AUTO) 0.8 X10'3 (0-0.9); MONOCYTES % (AUTO) 12.8 % (2-12); NEUTROPHILS # (AUTO) 3.7 X10'3 (1.8-7.7); NEUTROPHILS % (AUTO) 62.1 % (42-75); PLATELET COUNT 114 X10'3 (140-440); RED BLOOD COUNT 2.15 X10'6 (4.70-6.10); RED CELL DISTRIBUTION WIDTH 14.8 % (11.5-14.5)
[2017-08-28 11:40] LABS: INR 1.9 INR; PROTHROMBIN TIME 19.7 SECONDS (9.0-12.0)
[2017-08-28] MEDS ORDERED: piperacillin/tazo 3.375gm/50ml 50 ML IV SCH (11:55)
[2017-08-28 11:58] LABS: ALANINE AMINOTRANSFERASE 68 U/L (12-78); ALBUMIN 2.2 G/DL (3.4-5.0); ALKALINE PHOSPHATASE 137 IU/L (46-116); ANION GAP 11 (8-16); ASPARTATE AMINO TRANSFERASE 114 U/L (10-37); BILIRUBIN,TOTAL 7.3 MG/DL (0.1-1.0); BLOOD UREA NITROGEN 21 MG/DL (7-18); BUN/CREATININE RATIO 17.9 (5.4-32.0); CALCIUM 8.3 MG/DL (8.5-10.1); CHLORIDE 98 MMOL/L (99-107); CREATININE 1.17 MG/DL (0.60-1.10); GLUCOSE 129 MG/DL (70-104); LIPASE 533 U/L (73-393); POTASSIUM 3.8 MMOL/L (3.5-5.1); SODIUM 133 MMOL/L (135-145); TOTAL CARBON DIOXIDE 24.4 MMOL/L (24-32); eGFR 64 ML/MIN
[2017-08-28 12:00] LABS: ALBUMIN/GLOBULIN RATIO 0.4 (1.1-1.5); TOTAL PROTEIN 8.1 G/DL (6.4-8.2)
[2017-08-28] MEDS ORDERED: LIDOcaine 1%/PF (10mg/ml) 5ml vial ONE (12:45)
[2017-08-28 12:50] LABS: PLATELET ESTIMATE DECREASED
[2017-08-28 13:06] VITALS: BP 173/103
[2017-08-28 13:11] LABS: CLARITY,URINE CLEAR (Clear); COLOR,URINE AMBER (Yellow); GLUCOSE, URINE NEGATIVE (Neg); KETONES,URINE NEGATIVE (Neg); LEUKOCYTE ESTERASE ,URINE NEGATIVE (Neg); NITRITES, URINE NEGATIVE (Neg); OCCULT BLOOD,URINE NEGATIVE (Neg); PH,URINE 5.5 (4.8-8.0); PROTEIN,URINE NEGATIVE (Neg)
[2017-08-28 13:12] LABS: UA COLLECTION TYPE CLN CATCH MIDSTREAM
[2017-08-28 13:18] VITALS: BP 160/76
[2017-08-28] MEDS ORDERED: albumin (human) 25% 100 ML IV solution IV ONE (13:25)
[2017-08-28 15:15] VITALS: BP 155/78
== END 2017-08-28 15:17 | disposition home or self-care (01) ==
LOC: ER 10:22
DX: K70.31 Alcoholic cirrhosis of liver with ascites (principal); I10 Essential (primary) hypertension; E78.00 Pure hypercholesterolemia, unspecified; Z86.73 Personal history of transient ischemic attack (TIA), and cerebral infarction without residual deficits; Z79.899 Other long term (current) drug therapy
CPT/HCPCS: 36415; 49083; 71045; 76705; 80053; 81003; 82140; 83605; 83690; 83880; 84484; 85025; 85610; 87040; 93005; 96365; 96375; 99285; J2001; J2543; J7030; P9047

== ENCOUNTER 2017-08-31 07:58 | Emergency (ER) | payer MEDICAID ==
[~2017-08-31] VITALS: Ht 175.3 cm; Wt 103.4 kg
[2017-08-31] MEDS ORDERED: orphenadrine citrate 60mg/2ml inj. IM ONE (09:20)
[2017-08-31] MEDS ORDERED: CYCL-1 PO (09:24)
[2017-08-31 09:38] VITALS: BP 153/104
== END 2017-08-31 09:39 | disposition home or self-care (01) ==
LOC: ER 08:00
DX: S39.012A Strain of muscle, fascia and tendon of lower back, initial encounter (principal); E78.00 Pure hypercholesterolemia, unspecified; I10 Essential (primary) hypertension; Z86.73 Personal history of transient ischemic attack (TIA), and cerebral infarction without residual deficits; Z79.899 Other long term (current) drug therapy; X58.XXXA Exposure to other specified factors, initial encounter; Y93.89 Activity, other specified; Y92.89 Other specified places as the place of occurrence of the external cause; Y99.8 Other external cause status
CPT/HCPCS: 96372; 99284; J2360

== ENCOUNTER 2017-09-02 05:35 | Emergency (ER) | payer MEDICAID ==
[~2017-09-02] VITALS: Ht 175.3 cm; Wt 99.5 kg
[~2017-09-02 05:35] MED LIST changes: +CYCL-1 PO
[2017-09-02 05:37] VITALS: BP 177/104
[2017-09-02 06:50] LABS: HEMATOCRIT 38.7 % (42.0-52.0); HEMOGLOBIN 13.4 g/dl (14.0-17.9); MEAN CORPUSCULAR HEMOGLOBIN 38.8 PG (27.0-31.0); MEAN CORPUSCULAR HGB CONC 34.5 % (33.0-36.5); MEAN CORPUSCULAR VOLUME 112.3 FL (78-98); MEAN PLATELET VOLUME 8.6 FL (7.4-10.4); PLATELET COUNT 75 X10'3 (140-440); RED BLOOD COUNT 3.44 X10'6 (4.70-6.10); RED CELL DISTRIBUTION WIDTH 15.3 % (11.5-14.5); WHITE BLOOD COUNT 4.5 X10'3 (4.5-11.0)
[2017-09-02 07:01] LABS: INR 1.8 INR; PARTIAL THROMBOPLASTIN TIME 32 SECONDS (22-32); PROTHROMBIN TIME 18.3 SECONDS (9.0-12.0)
[2017-09-02 07:06] LABS: ALANINE AMINOTRANSFERASE 70 U/L (12-78); ALBUMIN 2.5 G/DL (3.4-5.0); ALKALINE PHOSPHATASE 146 IU/L (46-116); ANION GAP 14 (8-16); ASPARTATE AMINO TRANSFERASE 104 U/L (10-37); BILIRUBIN,TOTAL 6.9 MG/DL (0.1-1.0); BLOOD UREA NITROGEN 12 MG/DL (7-18); BUN/CREATININE RATIO 12.8 (5.4-32.0); CALCIUM 8.4 MG/DL (8.5-10.1); CHLORIDE 98 MMOL/L (99-107); CREATININE 0.94 MG/DL (0.60-1.10); GLUCOSE 105 MG/DL (70-104); LIPASE 426 U/L (73-393); SODIUM 133 MMOL/L (135-145); TOTAL CARBON DIOXIDE 21.3 MMOL/L (24-32); eGFR 83 ML/MIN
[2017-09-02 07:09] LABS: ALBUMIN/GLOBULIN RATIO 0.5 (1.1-1.5); POTASSIUM 3.6 MMOL/L (3.5-5.1)
[2017-09-02] MEDS ORDERED: furosemide 20MG tablet PO ONE (07:10)
[2017-09-02] MEDS ORDERED: spironolactone 50 MG tablet PO SCH (07:10)
[2017-09-02] MEDS ORDERED: HYDROcodone/acetaminophen 10/325mg tab PO ONE (07:30)
[2017-09-02 07:48] LABS: TOTAL CELLS COUNTED 100
[2017-09-02 07:49] LABS: PLATELET ESTIMATE DECREASED
[2017-09-02 07:50] LABS: ANISOCYTOSIS 1+; BURR CELLS 1+; POLYCHROMASIA 1+; ROULEAUX 1+; TARGET CELLS FEW
== END 2017-09-02 08:01 | disposition home or self-care (01) ==
LOC: ER 05:36
DX: K74.60 Unspecified cirrhosis of liver (principal); R18.8 Other ascites; I10 Essential (primary) hypertension; E78.00 Pure hypercholesterolemia, unspecified; Z86.73 Personal history of transient ischemic attack (TIA), and cerebral infarction without residual deficits; Z87.891 Personal history of nicotine dependence; Z79.899 Other long term (current) drug therapy
CPT/HCPCS: 36415; 80053; 83690; 85025; 85610; 85730; 86885; 86900; 86901; 99284

== ENCOUNTER 2017-09-09 14:20 | Emergency (ER) | payer MEDICAID ==
[~2017-09-09] VITALS: Ht 172.7 cm; Wt 124.1 kg
[2017-09-09 14:49] VITALS: BP 136/85
[2017-09-09] MEDS ORDERED: traMADol 50MG tablet PO ONE (15:30)
[2017-09-09] MEDS ORDERED: TRAM50TA2 PO (15:59)
== END 2017-09-09 16:17 | disposition home or self-care (01) ==
LOC: ER 14:20
DX: M54.5 Low back pain (principal); R18.8 Other ascites; G89.29 Other chronic pain; I10 Essential (primary) hypertension; E78.00 Pure hypercholesterolemia, unspecified; Z86.73 Personal history of transient ischemic attack (TIA), and cerebral infarction without residual deficits; Z79.899 Other long term (current) drug therapy
CPT/HCPCS: 99283

== ENCOUNTER 2017-09-13 08:45 | Emergency (ER) | payer MEDICAID ==
[~2017-09-13] VITALS: Ht 170.2 cm; Wt 127.0 kg
[~2017-09-13 08:45] MED LIST changes: +TRAM50TA2 PO
[2017-09-13] MEDS ORDERED: albumin (human) 25% 100 ML IV solution IV ONE (09:05)
[2017-09-13 09:29] LABS: BASOPHILS % (AUTO) 0.4 % (0-1); EOSINOPHILS # (AUTO) 0.1 X10'3 (0-0.9); EOSINOPHILS % (AUTO) 1.4 % (0-6); HEMATOCRIT 36.1 % (42.0-52.0); HEMOGLOBIN 12.6 g/dl (14.0-17.9); LYMPHOCYTES # (AUTO) 1.2 X10'3 (1.1-4.8); LYMPHOCYTES % (AUTO) 30.5 % (21-51); MEAN CORPUSCULAR HEMOGLOBIN 38.5 PG (27.0-31.0); MEAN CORPUSCULAR HGB CONC 34.8 % (33.0-36.5); MEAN CORPUSCULAR VOLUME 110.7 FL (78-98); MEAN PLATELET VOLUME 7.8 FL (7.4-10.4); MONOCYTES # (AUTO) 0.5 X10'3 (0-0.9); NEUTROPHILS # (AUTO) 2.2 X10'3 (1.8-7.7); NEUTROPHILS % (AUTO) 54.7 % (42-75); PLATELET COUNT 70 X10'3 (140-440); RED BLOOD COUNT 3.26 X10'6 (4.70-6.10); RED CELL DISTRIBUTION WIDTH 15.2 % (11.5-14.5)
[2017-09-13 09:39] LABS: INR 1.7 INR; PROTHROMBIN TIME 17.6 SECONDS (9.0-12.0)
[2017-09-13 09:56] LABS: ALANINE AMINOTRANSFERASE 48 U/L (12-78); ALKALINE PHOSPHATASE 123 IU/L (46-116); ANION GAP 12 (8-16); ASPARTATE AMINO TRANSFERASE 72 U/L (10-37); BLOOD UREA NITROGEN 16 MG/DL (7-18); BUN/CREATININE RATIO 17.8 (5.4-32.0); CALCIUM 7.7 MG/DL (8.5-10.1); CHLORIDE 103 MMOL/L (99-107); GLUCOSE 101 MG/DL (70-104); SODIUM 136 MMOL/L (135-145); TOTAL CARBON DIOXIDE 21.2 MMOL/L (24-32); eGFR 87 ML/MIN
[2017-09-13 09:57] LABS: ALBUMIN/GLOBULIN RATIO 0.4 (1.1-1.5); POTASSIUM 3.8 MMOL/L (3.5-5.1); TOTAL PROTEIN 6.9 G/DL (6.4-8.2)
[2017-09-13] MEDS ORDERED: BUPIVAcaine/PF 2.5 mg/ml (0.25%) 30ml vial IJ ONE (10:05)
[2017-09-13 11:21] LABS: LYMPHOCYTES,BODY FLUID 38 %; MONOCYTES,BODY FLUID 60 %; NEUTROPHILS,BODY FLUID 2 %
[2017-09-13 11:22] LABS: BF MESOTHELIAL CELLS MODERATE; BF RBC COUNT 84 /CU MM; BF WBC COUNT 66 /CU MM (0-1000); BFAPPEAR HAZY; BFCOLOR YELLOW; BFVOLUME 53 ML; GLUCOSE,BODY FLUID 128 MG/DL
[2017-09-13 12:05] VITALS: BP 165/91
[2017-09-13 12:05] LABS: TOTAL PROTEIN,BODY FLUID < 2.0 G/DL
== END 2017-09-13 12:20 | disposition home or self-care (01) ==
LOC: ER 08:46
DX: K70.31 Alcoholic cirrhosis of liver with ascites (principal); I10 Essential (primary) hypertension; E78.00 Pure hypercholesterolemia, unspecified; Z86.73 Personal history of transient ischemic attack (TIA), and cerebral infarction without residual deficits; Z79.899 Other long term (current) drug therapy
CPT/HCPCS: 36415; 49083; 80053; 82140; 82945; 83986; 84157; 85025; 85610; 87070; 89051; 96374; 99285; A6258; A6449; J3490; J7030; P9047

== ENCOUNTER 2017-09-16 16:17 | Inpatient (IN) | payer MEDICAID ==
[~2017-09-16] VITALS: Ht 172.7 cm; Wt 123.0 kg
[2017-09-16 18:29] LABS: BASOPHILS % (AUTO) 0.4 % (0-1); EOSINOPHILS % (AUTO) 0.6 % (0-6); HEMATOCRIT 33.4 % (42.0-52.0); HEMOGLOBIN 11.4 g/dl (14.0-17.9); LYMPHOCYTES # (AUTO) 0.7 X10'3 (1.1-4.8); LYMPHOCYTES % (AUTO) 19.6 % (21-51); MEAN CORPUSCULAR HEMOGLOBIN 37.9 PG (27.0-31.0); MEAN CORPUSCULAR HGB CONC 34.3 % (33.0-36.5); MEAN CORPUSCULAR VOLUME 110.5 FL (78-98); MEAN PLATELET VOLUME 7.5 FL (7.4-10.4); MONOCYTES # (AUTO) 0.4 X10'3 (0-0.9); MONOCYTES % (AUTO) 12.7 % (2-12); NEUTROPHILS # (AUTO) 2.3 X10'3 (1.8-7.7); NEUTROPHILS % (AUTO) 66.7 % (42-75); PLATELET COUNT 65 X10'3 (140-440); RED BLOOD COUNT 3.02 X10'6 (4.70-6.10); RED CELL DISTRIBUTION WIDTH 15.7 % (11.5-14.5); WHITE BLOOD COUNT 3.5 X10'3 (4.5-11.0)
[2017-09-16 18:45] LABS: ALANINE AMINOTRANSFERASE 44 U/L (12-78); ALBUMIN 2.3 G/DL (3.4-5.0); ALKALINE PHOSPHATASE 128 IU/L (46-116); ANION GAP 5 (8-16); ASPARTATE AMINO TRANSFERASE 57 U/L (10-37); BLOOD UREA NITROGEN 14 MG/DL (7-18); CALCIUM 8.5 MG/DL (8.5-10.1); CHLORIDE 102 MMOL/L (99-107); GLUCOSE 145 MG/DL (70-104); POTASSIUM 4.8 MMOL/L (3.5-5.1); SODIUM 135 MMOL/L (135-145); TOTAL CARBON DIOXIDE 27.6 MMOL/L (24-32); eGFR 77 ML/MIN
[2017-09-16 19:05] LABS: ALBUMIN/GLOBULIN RATIO 0.5 (1.1-1.5); TOTAL PROTEIN 6.6 G/DL (6.4-8.2)
[2017-09-16 19:45] LABS: INR 1.8 INR; PROTHROMBIN TIME 18.1 SECONDS (9.0-12.0)
[2017-09-16] MEDS ORDERED: LIDOcaine 1.5% w/epinephrine 1:200,000 5ml ampul IJ ONE (19:45)
[2017-09-16] MEDS ORDERED: mag hydrox/Alum hydrox/simeth 30ml oral suspension PO PRN (20:55)
[2017-09-16] MEDS ORDERED: ondansetron 4mg rapidly disintigrating tab PO PRN (20:55)
[2017-09-16] MEDS ORDERED: cyclobenzaprine 10mg tablet PO PRN (20:55)
[2017-09-16] MEDS ORDERED: diphenhydrAMINE 50 mg/ml inj IV PRN (20:55)
[2017-09-16] MEDS ORDERED: morphine 4 MG/ML inj SYRINge IV PRN ×2 (20:55)
[2017-09-16] MEDS ORDERED: acetaminophen 325mg tablet PO PRN ×2 (20:55)
[2017-09-16] MEDS ORDERED: diphenhydrAMINE 25mg capsule PO PRN (20:55)
[2017-09-16] MEDS ORDERED: magnesium hydroxide 30ml (MOM) UD suspension PO PRN (20:55)
[2017-09-16] MEDS ORDERED: ondansetron/PF 4mg/2ml inj IV PRN (20:55)
[2017-09-16] MEDS ORDERED: metoclopramide 5 mg/ml inj IV PRN (20:55)
[2017-09-16] MEDS ORDERED: HYDROmorphone inj. 0.5 MG/0.5 ML DISP.SYRIN IV PRN ×2 (20:55)
[2017-09-16] MEDS ORDERED: acetaminophen 650mg rectal suppository RC PRN (20:55)
[2017-09-16] MEDS ORDERED: HYDROcodone/acetaminophen 5mg/325mg tablet PO PRN (20:55)
[2017-09-16] MEDS: nystatin 15 GM powder TP SCH (22:49)
[2017-09-16] MEDS: CefTRIAXone/D5W-Rocephin 1gm 50 ML IV SCH (22:51)
[2017-09-16 23:07] LABS: HEMOGLOBIN A1C 4.1 % (4.5-6.2)
[2017-09-16 23:22] LABS: CREATINE KINASE 52 U/L (39-308); MAGNESIUM 1.5 MG/DL (1.5-2.4)
[2017-09-16 23:36] LABS: PHOSPHORUS 3.6 MG/DL (2.3-4.5)
[2017-09-17] VITALS: BP 145/82
[2017-09-17] MEDS: temazepam 15mg capsule PO PRN ×2 (00:25→21:57)
[2017-09-17] MEDS: HYDROcodone/acetaminophen 10/325mg tab PO PRN ×3 (00:25→21:05)
[2017-09-17] MEDS: lactulose 20gm/30ml cup PO SCH ×4 (01:10→21:03)
[2017-09-17 01:20] LABS: BASOPHILS % (AUTO) 0.5 % (0-1); HEMATOCRIT 29.7 % (42.0-52.0); HEMOGLOBIN 10.1 g/dl (14.0-17.9); LYMPHOCYTES # (AUTO) 1.2 X10'3 (1.1-4.8); MEAN CORPUSCULAR HEMOGLOBIN 37.5 PG (27.0-31.0); MEAN CORPUSCULAR VOLUME 110.4 FL (78-98); MEAN PLATELET VOLUME 8.7 FL (7.4-10.4); MONOCYTES # (AUTO) 0.5 X10'3 (0-0.9); MONOCYTES % (AUTO) 15.4 % (2-12); NEUTROPHILS # (AUTO) 1.7 X10'3 (1.8-7.7); NEUTROPHILS % (AUTO) 47.1 % (42-75); PLATELET COUNT 54 X10'3 (140-440); RED BLOOD COUNT 2.69 X10'6 (4.70-6.10); RED CELL DISTRIBUTION WIDTH 14.2 % (11.5-14.5); WHITE BLOOD COUNT 3.4 X10'3 (4.5-11.0)
[2017-09-17 01:27] LABS: ALANINE AMINOTRANSFERASE 35 U/L (12-78); ALBUMIN 1.7 G/DL (3.4-5.0); ALKALINE PHOSPHATASE 105 IU/L (46-116); ANION GAP 8 (8-16); ASPARTATE AMINO TRANSFERASE 50 U/L (10-37); BILIRUBIN,TOTAL 5.7 MG/DL (0.1-1.0); BLOOD UREA NITROGEN 14 MG/DL (7-18); BUN/CREATININE RATIO 17.7 (5.4-32.0); CALCIUM 8.2 MG/DL (8.5-10.1); CHLORIDE 102 MMOL/L (99-107); CREATININE 0.79 MG/DL (0.60-1.10); GLUCOSE 112 MG/DL (70-104); POTASSIUM 4.3 MMOL/L (3.5-5.1); SODIUM 135 MMOL/L (135-145); TOTAL CARBON DIOXIDE 24.9 MMOL/L (24-32); eGFR > 90 ML/MIN
[2017-09-17 01:53] LABS: ALBUMIN/GLOBULIN RATIO 0.4 (1.1-1.5); TOTAL PROTEIN 5.7 G/DL (6.4-8.2)
[2017-09-17 08:00] VITALS: BP 133/62
[2017-09-17] MEDS: nystatin 15 GM powder TP SCH ×3 (08:00→21:04)
[2017-09-17] MEDS: pantoprazole 40mg Tablet.DR PO SCH (09:37)
[2017-09-17] MEDS: CefTRIAXone/D5W-Rocephin 1gm 50 ML IV SCH ×2 (09:38→21:03)
[2017-09-17] MEDS: furosemide 10 MG/1 ML 10ml inj IV SCH ×2 (09:38→21:02)
[2017-09-17] MEDS: meclizine 12.5mg tablet PO SCH ×3 (09:38→16:00)
[2017-09-17] MEDS: docusate sod 100mg capsule PO SCH ×2 (09:39→20:00)
[2017-09-17] MEDS: folic acid 1mg tablet PO SCH ×2 (09:39→21:03)
[2017-09-17] MEDS: spironolactone 50 MG tablet PO SCH (09:40)
[2017-09-17] MEDS: multivitamins, therapeutics tablet PO SCH (09:40)
[2017-09-17 12:44] VITALS: BP 147/84
[2017-09-17 19:00] VITALS: BP 153/79
[2017-09-17] MEDS: lactobacillus rhamnosus 10,000 MMU CELLS/CAPSULE PO SCH (21:03)
[2017-09-18] VITALS: BP 169/98
[2017-09-18] MEDS: meclizine 12.5mg tablet PO SCH ×4 (01:52→23:17)
[2017-09-18] MEDS: lactulose 20gm/30ml cup PO SCH ×4 (01:52→20:37)
[2017-09-18] MEDS: HYDROcodone/acetaminophen 10/325mg tab PO PRN ×3 (05:20→20:38)
[2017-09-18 06:12] LABS: BASOPHILS % (AUTO) 0.8 % (0-1); EOSINOPHILS # (AUTO) 0.1 X10'3 (0-0.9); EOSINOPHILS % (AUTO) 1.4 % (0-6); HEMOGLOBIN 9.6 g/dl (14.0-17.9); LYMPHOCYTES # (AUTO) 1.3 X10'3 (1.1-4.8); LYMPHOCYTES % (AUTO) 38.4 % (21-51); MEAN CORPUSCULAR HEMOGLOBIN 38.3 PG (27.0-31.0); MEAN CORPUSCULAR HGB CONC 34.4 % (33.0-36.5); MEAN CORPUSCULAR VOLUME 111.4 FL (78-98); MEAN PLATELET VOLUME 8.2 FL (7.4-10.4); MONOCYTES # (AUTO) 0.6 X10'3 (0-0.9); MONOCYTES % (AUTO) 17.5 % (2-12); NEUTROPHILS # (AUTO) 1.5 X10'3 (1.8-7.7); NEUTROPHILS % (AUTO) 41.9 % (42-75); PLATELET COUNT 60 X10'3 (140-440); RED BLOOD COUNT 2.52 X10'6 (4.70-6.10); RED CELL DISTRIBUTION WIDTH 15.7 % (11.5-14.5); WHITE BLOOD COUNT 3.5 X10'3 (4.5-11.0)
[2017-09-18 06:34] LABS: ANISOCYTOSIS 1+; PLATELET ESTIMATE DECREASED
[2017-09-18 06:36] LABS: ALANINE AMINOTRANSFERASE 30 U/L (12-78); ALBUMIN 1.8 G/DL (3.4-5.0); ALKALINE PHOSPHATASE 105 IU/L (46-116); ANION GAP 7 (8-16); ASPARTATE AMINO TRANSFERASE 48 U/L (10-37); BILIRUBIN,TOTAL 3.8 MG/DL (0.1-1.0); BLOOD UREA NITROGEN 17 MG/DL (7-18); BUN/CREATININE RATIO 15.6 (5.4-32.0); CALCIUM 8.1 MG/DL (8.5-10.1); CHLORIDE 102 MMOL/L (99-107); CREATININE 1.09 MG/DL (0.60-1.10); GLUCOSE 114 MG/DL (70-104); POTASSIUM 3.8 MMOL/L (3.5-5.1); SODIUM 136 MMOL/L (135-145); eGFR 70 ML/MIN
[2017-09-18 06:37] LABS: ALBUMIN/GLOBULIN RATIO 0.5 (1.1-1.5); TOTAL PROTEIN 5.3 G/DL (6.4-8.2)
[2017-09-18] MEDS: pantoprazole 40mg Tablet.DR PO SCH (07:38)
[2017-09-18] MEDS: docusate sod 100mg capsule PO SCH ×2 (07:38→20:00)
[2017-09-18] MEDS: lactobacillus rhamnosus 10,000 MMU CELLS/CAPSULE PO SCH ×2 (07:39→20:37)
[2017-09-18] MEDS: folic acid 1mg tablet PO SCH ×2 (07:39→20:37)
[2017-09-18] MEDS: multivitamins, therapeutics tablet PO SCH (07:39)
[2017-09-18] MEDS: spironolactone 50 MG tablet PO SCH (07:39)
[2017-09-18] MEDS: CefTRIAXone/D5W-Rocephin 1gm 50 ML IV SCH ×2 (07:47→20:37)
[2017-09-18] MEDS: furosemide 10 MG/1 ML 10ml inj IV SCH ×2 (07:49→20:36)
[2017-09-18] MEDS: nystatin 15 GM powder TP SCH ×3 (07:51→20:49)
[2017-09-18 07:55] VITALS: BP 128/68
[2017-09-18 11:31] VITALS: BP 126/72
[2017-09-18 19:00] VITALS: BP 157/96
[2017-09-18] MEDS: temazepam 15mg capsule PO PRN (23:17)
[2017-09-19] VITALS: BP 152/78
[2017-09-19] MEDS: lactulose 20gm/30ml cup PO SCH ×3 (02:00→14:00)
[2017-09-19] MEDS: HYDROcodone/acetaminophen 10/325mg tab PO PRN ×2 (02:33→11:33)
[2017-09-19 05:25] LABS: BASOPHILS % (AUTO) 0.5 % (0-1); EOSINOPHILS # (AUTO) 0.1 X10'3 (0-0.9); EOSINOPHILS % (AUTO) 1.7 % (0-6); HEMATOCRIT 29.6 % (42.0-52.0); HEMOGLOBIN 10.1 g/dl (14.0-17.9); LYMPHOCYTES # (AUTO) 1.2 X10'3 (1.1-4.8); LYMPHOCYTES % (AUTO) 36.8 % (21-51); MEAN CORPUSCULAR HEMOGLOBIN 37.9 PG (27.0-31.0); MEAN CORPUSCULAR VOLUME 111.2 FL (78-98); MEAN PLATELET VOLUME 7.8 FL (7.4-10.4); MONOCYTES # (AUTO) 0.6 X10'3 (0-0.9); MONOCYTES % (AUTO) 17.9 % (2-12); NEUTROPHILS # (AUTO) 1.4 X10'3 (1.8-7.7); NEUTROPHILS % (AUTO) 43.1 % (42-75); PLATELET COUNT 58 X10'3 (140-440); RED BLOOD COUNT 2.66 X10'6 (4.70-6.10); RED CELL DISTRIBUTION WIDTH 15.6 % (11.5-14.5); WHITE BLOOD COUNT 3.3 X10'3 (4.5-11.0)
[2017-09-19 05:52] LABS: ALANINE AMINOTRANSFERASE 33 U/L (12-78); ALBUMIN 1.8 G/DL (3.4-5.0); ALKALINE PHOSPHATASE 110 IU/L (46-116); ANION GAP 9 (8-16); ASPARTATE AMINO TRANSFERASE 54 U/L (10-37); BILIRUBIN,TOTAL 3.5 MG/DL (0.1-1.0); BLOOD UREA NITROGEN 16 MG/DL (7-18); BUN/CREATININE RATIO 14.2 (5.4-32.0); CHLORIDE 101 MMOL/L (99-107); CREATININE 1.13 MG/DL (0.60-1.10); GLUCOSE 107 MG/DL (70-104); POTASSIUM 3.7 MMOL/L (3.5-5.1); SODIUM 136 MMOL/L (135-145); TOTAL CARBON DIOXIDE 26.5 MMOL/L (24-32); eGFR 67 ML/MIN
[2017-09-19 05:53] LABS: ALBUMIN/GLOBULIN RATIO 0.5 (1.1-1.5); TOTAL PROTEIN 5.8 G/DL (6.4-8.2)
[2017-09-19 06:31] LABS: PLATELET ESTIMATE DECREASED
[2017-09-19 06:32] LABS: ANISOCYTOSIS 1+
[2017-09-19 06:33] LABS: HYPOCHROMASIA 1+
[2017-09-19 07:23] VITALS: BP 125/58
[2017-09-19] MEDS: nystatin 15 GM powder TP SCH ×3 (08:00→13:00)
[2017-09-19] MEDS: pantoprazole 40mg Tablet.DR PO SCH (10:36)
[2017-09-19] MEDS: spironolactone 50 MG tablet PO SCH (10:36)
[2017-09-19] MEDS: lactobacillus rhamnosus 10,000 MMU CELLS/CAPSULE PO SCH (10:37)
[2017-09-19] MEDS: multivitamins, therapeutics tablet PO SCH (10:37)
[2017-09-19] MEDS: docusate sod 100mg capsule PO SCH (10:37)
[2017-09-19] MEDS: folic acid 1mg tablet PO SCH (10:37)
[2017-09-19] MEDS: CefTRIAXone/D5W-Rocephin 1gm 50 ML IV SCH (10:38)
[2017-09-19] MEDS: meclizine 12.5mg tablet PO SCH (10:38)
[2017-09-19] MEDS: furosemide 10 MG/1 ML 10ml inj IV SCH (10:43)
[2017-09-19 11:00] VITALS: BP 132/63
== END 2017-09-19 13:30 | disposition home or self-care (01) | DRG 252 ==
LOC: ER 16:18 → ED HOLD 20:53 → SUR 3N 23:40
PROVIDERS: ADMIT Family Medicine; ATTEND Family Medicine
DX: K91.89 Other postprocedural complications and disorders of digestive system (principal); D61.818 Other pancytopenia; D68.9 Coagulation defect, unspecified; K76.6 Portal hypertension; Z68.41 Body mass index [BMI] 40.0-44.9, adult; K70.31 Alcoholic cirrhosis of liver with ascites; K72.90 Hepatic failure, unspecified without coma; I10 Essential (primary) hypertension; F10.10 Alcohol abuse, uncomplicated; Y84.4 Aspiration of fluid as the cause of abnormal reaction of the patient, or of later complication, without mention of misadventure at the time of the procedure; Y82.8 Other medical devices associated with adverse incidents; K31.9 Disease of stomach and duodenum, unspecified; F17.210 Nicotine dependence, cigarettes, uncomplicated; E78.00 Pure hypercholesterolemia, unspecified; Z83.3 Family history of diabetes mellitus; Z86.73 Personal history of transient ischemic attack (TIA), and cerebral infarction without residual deficits; Z79.899 Other long term (current) drug therapy
CPT/HCPCS: 36415; 71046; 80053; 82140; 82550; 83036; 83605; 83735; 83880; 84100; 84145; 84443; 84484; 85025; 85610; 85651; 87070; 99285; A6212; A6253; A6258; A6446; A6449; J0696; J1940; J3490; J7030; J8597

== ENCOUNTER 2017-09-29 10:39 | Inpatient (IN) | payer MEDICAID ==
[~2017-09-29] VITALS: Ht 170.2 cm; Wt 127.0 kg
[~2017-09-29 10:39] MED LIST changes: -ONDA4TAB9 PO; -PANT40TA4 PO
[2017-09-29] MEDS ORDERED: normal saline 1000ML IV soln IVB ONE (11:35)
[2017-09-29 12:16] LABS: BASOPHILS % (AUTO) 0.3 % (0-1); EOSINOPHILS # (AUTO) 0.1 X10'3 (0-0.9); EOSINOPHILS % (AUTO) 0.9 % (0-6); HEMOGLOBIN 10.6 g/dl (14.0-17.9); LYMPHOCYTES % (AUTO) 16.2 % (21-51); MEAN CORPUSCULAR HEMOGLOBIN 37.2 PG (27.0-31.0); MEAN CORPUSCULAR VOLUME 109.6 FL (78-98); MEAN PLATELET VOLUME 8.2 FL (7.4-10.4); MONOCYTES # (AUTO) 0.7 X10'3 (0-0.9); MONOCYTES % (AUTO) 10.7 % (2-12); NEUTROPHILS # (AUTO) 4.5 X10'3 (1.8-7.7); NEUTROPHILS % (AUTO) 71.9 % (42-75); PLATELET COUNT 106 X10'3 (140-440); RED BLOOD COUNT 2.83 X10'6 (4.70-6.10); RED CELL DISTRIBUTION WIDTH 15.4 % (11.5-14.5); WHITE BLOOD COUNT 6.3 X10'3 (4.5-11.0)
[2017-09-29 12:28] LABS: INR 1.7 INR; PROTHROMBIN TIME 17.3 SECONDS (9.0-12.0)
[2017-09-29 12:33] LABS: ALANINE AMINOTRANSFERASE 53 U/L (12-78); ALBUMIN 2.4 G/DL (3.4-5.0); ALKALINE PHOSPHATASE 139 IU/L (46-116); ANION GAP 10 (8-16); BILIRUBIN,TOTAL 6.5 MG/DL (0.1-1.0); BLOOD UREA NITROGEN 33 MG/DL (7-18); BUN/CREATININE RATIO 22.4 (5.4-32.0); CALCIUM 8.7 MG/DL (8.5-10.1); CHLORIDE 100 MMOL/L (99-107); CREATININE 1.47 MG/DL (0.60-1.10); GLUCOSE 119 MG/DL (70-104); SODIUM 134 MMOL/L (135-145); TOTAL CARBON DIOXIDE 24.2 MMOL/L (24-32); eGFR 50 ML/MIN
[2017-09-29 12:35] LABS: ALBUMIN/GLOBULIN RATIO 0.5 (1.1-1.5); ASPARTATE AMINO TRANSFERASE 86 U/L (10-37); TOTAL PROTEIN 7.1 G/DL (6.4-8.2)
[2017-09-29 12:36] LABS: CLARITY,URINE CLEAR (Clear); COLOR,URINE AMBER (Yellow); GLUCOSE, URINE NEGATIVE (Neg); KETONES,URINE NEGATIVE (Neg); LEUKOCYTE ESTERASE ,URINE NEGATIVE (Neg); NITRITES, URINE NEGATIVE (Neg); OCCULT BLOOD,URINE NEGATIVE (Neg); PH,URINE 5.5 (4.8-8.0); PROTEIN,URINE TRACE mg/dl (Neg)
[2017-09-29 12:41] LABS: LIPASE 557 U/L (73-393); MAGNESIUM 1.7 MG/DL (1.5-2.4)
[2017-09-29 12:43] LABS: ETHANOL < 0.010 GM/DL (0.0-0.010)
[2017-09-29 12:50] LABS: UA COLLECTION TYPE FOLEY CATH
[2017-09-29 12:51] LABS: BACTERIA,URINE FEW /HPF (Neg); RBC,URINE NONE SEEN /HPF (0-2); URINE AMPHETAMINE SCREEN NEGATIVE (Neg); URINE BARBITUATE SCREEN NEGATIVE (Neg); URINE BENZODIAZEPINES SCREEN NEGATIVE (Neg); URINE CANNABINOID SCREEN POSITIVE (Neg); URINE COCAINE SCREEN NEGATIVE (Neg); URINE METHADONE SCREEN NEGATIVE (Neg); URINE OPIATE SCREEN POSITIVE (Neg); URINE PHENCYCLIDINE SCREEN NEGATIVE (Neg); WBC,URINE 0-4 /HPF (0-4)
[2017-09-29 12:52] LABS: COARSE GRANULAR CAST 0-3 /LPF (NEGATIVE); FINE GRANULAR CAST 0-3 /LPF (NEGATIVE); MUCUS STRANDS MODERATE /LPF (Neg); SQUAMOUS EPITHELIAL CELL,UR FEW /LPF (FEW)
[2017-09-29] MEDS ORDERED: lactulose 20gm/30ml cup OGT ONE (13:45)
[2017-09-29] MEDS ORDERED: mag hydrox/Alum hydrox/simeth 30ml oral suspension PO PRN (13:55)
[2017-09-29] MEDS ORDERED: magnesium hydroxide 30ml (MOM) UD suspension PO PRN (13:55)
[2017-09-29] MEDS ORDERED: acetaminophen 325mg tablet PO PRN (13:55)
[2017-09-29] MEDS ORDERED: ondansetron/PF 4mg/2ml inj IV PRN (13:55)
[2017-09-29] MEDS ORDERED: cyclobenzaprine 10mg tablet PO PRN (15:00)
[2017-09-29] MEDS: sodium chloride 0.45% 1,000 ML IV SCH (15:00)
[2017-09-29] MEDS: traMADol 50MG tablet PO SCH (16:00)
[2017-09-29] MEDS ORDERED: furosemide 20MG tablet PO SCH (20:00)
[2017-09-29 20:30] VITALS: BP 134/78
[2017-09-29] MEDS: lactulose 20gm/30ml cup PO SCH (21:00)
[2017-09-29] MEDS: nystatin 15 GM powder TP SCH (21:01)
[2017-09-30] VITALS: BP 135/57
[2017-09-30] MEDS: traMADol 50MG tablet PO SCH ×4 (00:11→15:10)
[2017-09-30] MEDS: sodium chloride 0.45% 1,000 ML IV SCH ×2 (00:16→11:00)
[2017-09-30] MEDS: lactulose 20gm/30ml cup PO SCH ×4 (01:41→19:37)
[2017-09-30 04:47] LABS: BASOPHILS % (AUTO) 0.3 % (0-1); EOSINOPHILS % (AUTO) 0.8 % (0-6); HEMATOCRIT 27.8 % (42.0-52.0); HEMOGLOBIN 9.4 g/dl (14.0-17.9); LYMPHOCYTES # (AUTO) 1.3 X10'3 (1.1-4.8); LYMPHOCYTES % (AUTO) 26.8 % (21-51); MEAN CORPUSCULAR HEMOGLOBIN 37.6 PG (27.0-31.0); MEAN CORPUSCULAR HGB CONC 33.8 % (33.0-36.5); MEAN CORPUSCULAR VOLUME 111.3 FL (78-98); MEAN PLATELET VOLUME 7.5 FL (7.4-10.4); MONOCYTES # (AUTO) 0.7 X10'3 (0-0.9); NEUTROPHILS # (AUTO) 2.8 X10'3 (1.8-7.7); NEUTROPHILS % (AUTO) 58.1 % (42-75); PLATELET COUNT 74 X10'3 (140-440); RED BLOOD COUNT 2.49 X10'6 (4.70-6.10); RED CELL DISTRIBUTION WIDTH 15.5 % (11.5-14.5); WHITE BLOOD COUNT 4.7 X10'3 (4.5-11.0)
[2017-09-30 05:22] LABS: PLATELET ESTIMATE DECREASED; TARGET CELLS FEW
[2017-09-30 05:51] LABS: ALANINE AMINOTRANSFERASE 44 U/L (12-78); ALBUMIN 1.9 G/DL (3.4-5.0); ALKALINE PHOSPHATASE 93 IU/L (46-116); ANION GAP 9 (8-16); ASPARTATE AMINO TRANSFERASE 63 U/L (10-37); BLOOD UREA NITROGEN 33 MG/DL (7-18); CALCIUM 8.7 MG/DL (8.5-10.1); CHLORIDE 103 MMOL/L (99-107); CREATININE 1.27 MG/DL (0.60-1.10); GLUCOSE 144 MG/DL (70-104); POTASSIUM 3.8 MMOL/L (3.5-5.1); SODIUM 137 MMOL/L (135-145); eGFR 59 ML/MIN
[2017-09-30 06:10] LABS: ALBUMIN/GLOBULIN RATIO 0.4 (1.1-1.5); TOTAL PROTEIN 6.5 G/DL (6.4-8.2)
[2017-09-30 07:00] VITALS: BP 128/60
[2017-09-30] MEDS: enoxaparin 40mg/0.4ml syringe SUBCUT SCH (08:00)
[2017-09-30] MEDS: spironolactone 50 MG tablet PO SCH (09:55)
[2017-09-30] MEDS: pantoprazole 40mg Tablet.DR PO SCH (09:55)
[2017-09-30] MEDS: nystatin 15 GM powder TP SCH ×3 (09:59→19:36)
[2017-09-30 11:00] VITALS: BP 140/70
[2017-09-30 18:00] VITALS: BP 131/70
[2017-10-01] VITALS (8 sets, daily range): BP systolic 108–155; BP diastolic 64–95
[2017-10-01] MEDS: lactulose 20gm/30ml cup PO SCH ×2 (01:40→08:00)
[2017-10-01 03:43] LABS: BASOPHILS % (AUTO) 0.6 % (0-1); EOSINOPHILS # (AUTO) 0.1 X10'3 (0-0.9); EOSINOPHILS % (AUTO) 1.5 % (0-6); HEMATOCRIT 27.4 % (42.0-52.0); HEMOGLOBIN 9.3 g/dl (14.0-17.9); LYMPHOCYTES # (AUTO) 1.8 X10'3 (1.1-4.8); LYMPHOCYTES % (AUTO) 34.6 % (21-51); MEAN CORPUSCULAR HGB CONC 34.1 % (33.0-36.5); MEAN CORPUSCULAR VOLUME 111.4 FL (78-98); MEAN PLATELET VOLUME 7.6 FL (7.4-10.4); MONOCYTES # (AUTO) 0.7 X10'3 (0-0.9); MONOCYTES % (AUTO) 12.9 % (2-12); NEUTROPHILS # (AUTO) 2.6 X10'3 (1.8-7.7); NEUTROPHILS % (AUTO) 50.4 % (42-75); PLATELET COUNT 73 X10'3 (140-440); RED BLOOD COUNT 2.46 X10'6 (4.70-6.10); RED CELL DISTRIBUTION WIDTH 15.6 % (11.5-14.5); WHITE BLOOD COUNT 5.1 X10'3 (4.5-11.0)
[2017-10-01 03:56] LABS: ALANINE AMINOTRANSFERASE 38 U/L (12-78); ALBUMIN 1.9 G/DL (3.4-5.0); ALKALINE PHOSPHATASE 96 IU/L (46-116); ANION GAP 8 (8-16); ASPARTATE AMINO TRANSFERASE 64 U/L (10-37); BILIRUBIN,TOTAL 4.9 MG/DL (0.1-1.0); BLOOD UREA NITROGEN 32 MG/DL (7-18); CALCIUM 8.3 MG/DL (8.5-10.1); CHLORIDE 103 MMOL/L (99-107); GLUCOSE 105 MG/DL (70-104); POTASSIUM 3.7 MMOL/L (3.5-5.1); SODIUM 136 MMOL/L (135-145); TOTAL CARBON DIOXIDE 25.2 MMOL/L (24-32); eGFR 77 ML/MIN
[2017-10-01 04:13] LABS: ALBUMIN/GLOBULIN RATIO 0.5 (1.1-1.5); TOTAL PROTEIN 5.6 G/DL (6.4-8.2)
[2017-10-01] MEDS: enoxaparin 40mg/0.4ml syringe SUBCUT SCH (08:00)
[2017-10-01] MEDS: traMADol 50MG tablet PO SCH ×2 (08:00)
[2017-10-01] MEDS ORDERED: LACT10SO32 PO (09:21)
[2017-10-01] MEDS: nystatin 15 GM powder TP SCH ×2 (09:31→13:16)
[2017-10-01] MEDS: spironolactone 50 MG tablet PO SCH (09:36)
[2017-10-01] MEDS: pantoprazole 40mg Tablet.DR PO SCH (09:37)
[2017-10-01] MEDS ORDERED: albumin (human) 25% 100 ML IV solution IV ONE (12:40)
== END 2017-10-01 18:15 | disposition home health service (06) | DRG 279 ==
LOC: ER 10:39 → ED HOLD 13:53 → SUR 3N 20:30
PROVIDERS: ADMIT Internal Medicine; ATTEND Internal Medicine
PROC: 0W9G3ZZ Drainage of Peritoneal Cavity, Percutaneous Approach (ICD-10-PCS; principal; 2017-10-01)
DX: K72.00 Acute and subacute hepatic failure without coma (principal); N17.9 Acute kidney failure, unspecified; R18.8 Other ascites; Z68.41 Body mass index [BMI] 40.0-44.9, adult; D69.6 Thrombocytopenia, unspecified; G93.89 Other specified disorders of brain; G89.29 Other chronic pain; M54.9 Dorsalgia, unspecified; E66.01 Morbid (severe) obesity due to excess calories; K74.60 Unspecified cirrhosis of liver; D50.9 Iron deficiency anemia, unspecified; D53.9 Nutritional anemia, unspecified; E78.00 Pure hypercholesterolemia, unspecified; I10 Essential (primary) hypertension; Z79.899 Other long term (current) drug therapy; Z79.01 Long term (current) use of anticoagulants; Z83.3 Family history of diabetes mellitus; Z86.73 Personal history of transient ischemic attack (TIA), and cerebral infarction without residual deficits
CPT/HCPCS: 36415; 49083; 70450; 71045; 76705; 80053; 80305; 80320; 81001; 82140; 83690; 83735; 83880; 84484; 85025; 85610; 87070; 93005; 99285; A4315; A6257; J1650; J2001; J7030; P9047

== ENCOUNTER 2017-10-19 18:47 | Inpatient (IN) | payer MEDICAID ==
[~2017-10-19] VITALS: Ht 170.2 cm; Wt 130.0 kg
[~2017-10-19 18:47] MED LIST changes: -MECL-111 PO; -SPIR50TA3 PO; +SPIR50TA5 PO; -TRAM50TA2 PO
[2017-10-19 19:53] LABS: CLARITY,URINE CLEAR (Clear); COLOR,URINE AMBER (Yellow); GLUCOSE, URINE NEGATIVE (Neg); KETONES,URINE NEGATIVE (Neg); LEUKOCYTE ESTERASE ,URINE NEGATIVE (Neg); NITRITES, URINE NEGATIVE (Neg); OCCULT BLOOD,URINE NEGATIVE (Neg); PH,URINE 5.5 (4.8-8.0); PROTEIN,URINE NEGATIVE (Neg); UA COLLECTION TYPE FOLEY CATH
[2017-10-19 20:04] LABS: URINE AMPHETAMINE SCREEN NEGATIVE (Neg); URINE BARBITUATE SCREEN NEGATIVE (Neg); URINE BENZODIAZEPINES SCREEN NEGATIVE (Neg); URINE CANNABINOID SCREEN POSITIVE (Neg); URINE COCAINE SCREEN NEGATIVE (Neg); URINE METHADONE SCREEN NEGATIVE (Neg); URINE OPIATE SCREEN POSITIVE (Neg); URINE PHENCYCLIDINE SCREEN NEGATIVE (Neg)
[2017-10-19 20:38] LABS: BASOPHILS % (AUTO) 0.1 % (0-1); EOSINOPHILS # (AUTO) 0.1 X10'3 (0-0.9); EOSINOPHILS % (AUTO) 1.4 % (0-6); HEMATOCRIT 32.7 % (42.0-52.0); HEMOGLOBIN 11.1 g/dl (14.0-17.9); LYMPHOCYTES # (AUTO) 1.5 X10'3 (1.1-4.8); LYMPHOCYTES % (AUTO) 21.1 % (21-51); MEAN CORPUSCULAR HEMOGLOBIN 37.3 PG (27.0-31.0); MEAN CORPUSCULAR HGB CONC 33.9 % (33.0-36.5); MEAN CORPUSCULAR VOLUME 110.1 FL (78-98); MEAN PLATELET VOLUME 7.7 FL (7.4-10.4); MONOCYTES # (AUTO) 1.1 X10'3 (0-0.9); MONOCYTES % (AUTO) 16.2 % (2-12); NEUTROPHILS # (AUTO) 4.3 X10'3 (1.8-7.7); NEUTROPHILS % (AUTO) 61.2 % (42-75); PLATELET COUNT 102 X10'3 (140-440); RED BLOOD COUNT 2.97 X10'6 (4.70-6.10); RED CELL DISTRIBUTION WIDTH 15.2 % (11.5-14.5); WHITE BLOOD COUNT 7.1 X10'3 (4.5-11.0)
[2017-10-19 20:49] LABS: INR 1.8 INR; PARTIAL THROMBOPLASTIN TIME 39 SECONDS (22-32); PROTHROMBIN TIME 17.9 SECONDS (9.0-12.0)
[2017-10-19 20:53] LABS: ALANINE AMINOTRANSFERASE 49 U/L (12-78); ALBUMIN 2.1 G/DL (3.4-5.0); ALKALINE PHOSPHATASE 148 IU/L (46-116); ANION GAP 13 (8-16); ASPARTATE AMINO TRANSFERASE 62 U/L (10-37); BILIRUBIN,TOTAL 5.8 MG/DL (0.1-1.0); BLOOD UREA NITROGEN 33 MG/DL (7-18); BUN/CREATININE RATIO 21.3 (5.4-32.0); CALCIUM 8.5 MG/DL (8.5-10.1); CHLORIDE 96 MMOL/L (99-107); CREATININE 1.55 MG/DL (0.60-1.10); ETHANOL < 0.010 GM/DL (0.0-0.010); GLUCOSE 117 MG/DL (70-104); POTASSIUM 4.8 MMOL/L (3.5-5.1); SODIUM 130 MMOL/L (135-145); TOTAL CARBON DIOXIDE 21.5 MMOL/L (24-32); eGFR 47 ML/MIN
[2017-10-19 20:55] LABS: ALBUMIN/GLOBULIN RATIO 0.5 (1.1-1.5); TOTAL PROTEIN 6.5 G/DL (6.4-8.2)
[2017-10-19] MEDS ORDERED: lactulose 20gm/30ml cup PO ONE (21:05)
[2017-10-19] MEDS ORDERED: cyclobenzaprine 10mg tablet PO PRN (21:35)
[2017-10-19] MEDS ORDERED: HYDROmorphone inj. 0.5 MG/0.5 ML DISP.SYRIN IV PRN ×2 (21:40)
[2017-10-19] MEDS ORDERED: morphine 4 MG/ML inj SYRINge IV PRN ×2 (21:40)
[2017-10-19] MEDS ORDERED: metoclopramide 5 mg/ml inj IV PRN (21:40)
[2017-10-19] MEDS ORDERED: ondansetron/PF 4mg/2ml inj IV PRN (21:40)
[2017-10-19] MEDS ORDERED: bisacodyl 10mg suppository rectal RC PRN (21:40)
[2017-10-19] MEDS ORDERED: magnesium hydroxide 30ml (MOM) UD suspension PO PRN (21:40)
[2017-10-19] MEDS ORDERED: mag hydrox/Alum hydrox/simeth 30ml oral suspension PO PRN (21:40)
[2017-10-19] MEDS ORDERED: HYDROcodone/acetaminophen 5mg/325mg tablet PO PRN (21:40)
[2017-10-19] MEDS ORDERED: acetaminophen 325mg tablet PO PRN ×2 (21:40)
[2017-10-19] MEDS ORDERED: diphenhydrAMINE 25mg capsule PO PRN (21:40)
[2017-10-19] MEDS ORDERED: acetaminophen 650mg rectal suppository RC PRN (21:40)
[2017-10-19] MEDS ORDERED: diphenhydrAMINE 50 mg/ml inj IV PRN (21:40)
[2017-10-19] MEDS ORDERED: hydrALAZINE 20mg/ml inj. IV PRN (21:45)
[2017-10-19] MEDS ORDERED: LORazepam 2 mg/ml vial IV PRN (21:55)
[2017-10-19 22:05] LABS: MAGNESIUM 1.4 MG/DL (1.5-2.4)
[2017-10-19 22:08] LABS: PHOSPHORUS 4.7 MG/DL (2.3-4.5)
[2017-10-19 22:20] LABS: ALLEN'S TEST Positive; RESPIRATORY RATE (OBSERVED) 20 b/min
[2017-10-19 22:21] LABS: ABG BASE EXCESS -2.8 mmol/L (-2.0-3.0); ABG HCO3 19.7 mmol/L (22.0-26.0); ABG OXYGEN SATURATION 96.5 % (95-98); ABG PCO2 (T) 27.5 mmHg (35.0-48.0); ABG PH (T) 7.472 (7.350-7.450); ABG PO2 (T) 90.3 mmHg (83-108); FCOHb 0.6 % (0.5-1.5); FMetHb 0.1 % (0.3-1.12); FO2Hb 95.8 % (94-100); TOTAL HEMOGLOBIN 11.7 G/dl (14.0-18.0)
[2017-10-19 22:37] LABS: LIPASE 601 U/L (73-393)
[2017-10-19 22:40] LABS: CARBAMAZEPINE (TEGRETOL) < 0.5 UG/ML (4.0-12.0)
[2017-10-19 23:30] VITALS: BP 131/74
[2017-10-20] MEDS: CefTRIAXone/D5W-Rocephin 1gm 50 ML IV SCH ×2 (00:34→08:04)
[2017-10-20] MEDS ORDERED: potassium Cl 40MEQ/NS 500ml 500 ML IV PRN ×2 (01:00)
[2017-10-20] MEDS ORDERED: potassium Cl 20 mEq SR tablet PO PRN ×2 (01:00)
[2017-10-20] MEDS ORDERED: magnesium Cl slow-release 64mg tablet PO PRN (01:00)
[2017-10-20] MEDS ORDERED: magnesium 4gm in 100ml NS 100 ML IV PRN (01:00)
[2017-10-20] MEDS ORDERED: magnesium/D5W IVPB 100 ML IV PRN (01:00)
[2017-10-20] MEDS: lactulose 20gm/30ml cup PO SCH ×7 (03:21→23:33)
[2017-10-20 05:23] LABS: BASOPHILS % (AUTO) 0.2 % (0-1); EOSINOPHILS # (AUTO) 0.1 X10'3 (0-0.9); EOSINOPHILS % (AUTO) 0.8 % (0-6); HEMATOCRIT 30.2 % (42.0-52.0); HEMOGLOBIN 10.4 g/dl (14.0-17.9); LYMPHOCYTES # (AUTO) 1.2 X10'3 (1.1-4.8); LYMPHOCYTES % (AUTO) 17.3 % (21-51); MEAN CORPUSCULAR HEMOGLOBIN 37.6 PG (27.0-31.0); MEAN CORPUSCULAR HGB CONC 34.3 % (33.0-36.5); MEAN CORPUSCULAR VOLUME 109.6 FL (78-98); MEAN PLATELET VOLUME 7.7 FL (7.4-10.4); MONOCYTES # (AUTO) 0.9 X10'3 (0-0.9); MONOCYTES % (AUTO) 13.8 % (2-12); NEUTROPHILS # (AUTO) 4.6 X10'3 (1.8-7.7); NEUTROPHILS % (AUTO) 67.9 % (42-75); PLATELET COUNT 98 X10'3 (140-440); RED BLOOD COUNT 2.76 X10'6 (4.70-6.10); RED CELL DISTRIBUTION WIDTH 15.2 % (11.5-14.5); WHITE BLOOD COUNT 6.7 X10'3 (4.5-11.0)
[2017-10-20 05:45] LABS: ALANINE AMINOTRANSFERASE 46 U/L (12-78); ALKALINE PHOSPHATASE 131 IU/L (46-116); ANION GAP 12 (8-16); ASPARTATE AMINO TRANSFERASE 65 U/L (10-37); BILIRUBIN,TOTAL 7.1 MG/DL (0.1-1.0); BLOOD UREA NITROGEN 34 MG/DL (7-18); BUN/CREATININE RATIO 24.6 (5.4-32.0); CALCIUM 8.6 MG/DL (8.5-10.1); CHLORIDE 97 MMOL/L (99-107); CREATININE 1.38 MG/DL (0.60-1.10); GLUCOSE 113 MG/DL (70-104); SODIUM 130 MMOL/L (135-145); TOTAL CARBON DIOXIDE 21.3 MMOL/L (24-32); eGFR 53 ML/MIN
[2017-10-20 05:46] LABS: ALBUMIN/GLOBULIN RATIO 0.5 (1.1-1.5); POTASSIUM 4.6 MMOL/L (3.5-5.1); TOTAL PROTEIN 6.3 G/DL (6.4-8.2)
[2017-10-20 06:48] VITALS: BP 169/79
[2017-10-20] MEDS: spironolactone 50 MG tablet PO SCH (07:37)
[2017-10-20] MEDS: docusate sod 100mg capsule PO SCH ×2 (07:37→19:13)
[2017-10-20] MEDS ORDERED: furosemide 10 MG/1 ML 10ml inj IV SCH (08:00)
[2017-10-20] MEDS ORDERED: RIFAXIMIN PO SCH (08:00)
[2017-10-20] MEDS: nystatin 15 GM powder TP SCH ×3 (08:05→22:37)
[2017-10-20] MEDS: pantoprazole 40 MG vial IV SCH ×2 (08:05→22:37)
[2017-10-20 11:33] VITALS: BP 146/92
[2017-10-20] MEDS: furosemide 10 MG/1 ML 10ml inj IV SCH ×2 (12:23→22:37)
[2017-10-20 18:00] VITALS: BP 136/80
[2017-10-20] MEDS: lactobacillus rhamnosus 10,000 MMU CELLS/CAPSULE PO SCH (19:13)
[2017-10-20] MEDS: HYDROcodone/acetaminophen 10/325mg tab PO PRN (19:19)
[2017-10-20] MEDS ORDERED: HYDROmorphone 1 mg/ml syringe ONE (22:26)
[2017-10-20 22:30] VITALS: BP 145/77
[2017-10-21] MEDS: HYDROcodone/acetaminophen 10/325mg tab PO PRN ×3 (00:52→20:13)
[2017-10-21] MEDS: lactulose 20gm/30ml cup PO SCH ×5 (04:28→20:00)
[2017-10-21 05:52] LABS: BASOPHILS % (AUTO) 0.4 % (0-1); EOSINOPHILS # (AUTO) 0.1 X10'3 (0-0.9); EOSINOPHILS % (AUTO) 1.8 % (0-6); HEMATOCRIT 29.1 % (42.0-52.0); HEMOGLOBIN 10.1 g/dl (14.0-17.9); LYMPHOCYTES # (AUTO) 1.9 X10'3 (1.1-4.8); LYMPHOCYTES % (AUTO) 25.1 % (21-51); MEAN CORPUSCULAR HEMOGLOBIN 37.7 PG (27.0-31.0); MEAN CORPUSCULAR HGB CONC 34.7 % (33.0-36.5); MEAN CORPUSCULAR VOLUME 108.5 FL (78-98); MEAN PLATELET VOLUME 7.9 FL (7.4-10.4); MONOCYTES # (AUTO) 1.4 X10'3 (0-0.9); MONOCYTES % (AUTO) 18.9 % (2-12); NEUTROPHILS # (AUTO) 4.1 X10'3 (1.8-7.7); NEUTROPHILS % (AUTO) 53.8 % (42-75); PLATELET COUNT 107 X10'3 (140-440); RED BLOOD COUNT 2.68 X10'6 (4.70-6.10); RED CELL DISTRIBUTION WIDTH 15.5 % (11.5-14.5); WHITE BLOOD COUNT 7.6 X10'3 (4.5-11.0)
[2017-10-21 06:09] LABS: ALANINE AMINOTRANSFERASE 46 U/L (12-78); ALBUMIN 1.9 G/DL (3.4-5.0); ALBUMIN/GLOBULIN RATIO 0.5 (1.1-1.5); ALKALINE PHOSPHATASE 127 IU/L (46-116); ANION GAP 11 (8-16); ASPARTATE AMINO TRANSFERASE 61 U/L (10-37); BILIRUBIN,TOTAL 5.9 MG/DL (0.1-1.0); BLOOD UREA NITROGEN 38 MG/DL (7-18); BUN/CREATININE RATIO 26.4 (5.4-32.0); CALCIUM 8.1 MG/DL (8.5-10.1); CHLORIDE 97 MMOL/L (99-107); CREATININE 1.44 MG/DL (0.60-1.10); GLUCOSE 123 MG/DL (70-104); MAGNESIUM 2.1 MG/DL (1.5-2.4); POTASSIUM 4.5 MMOL/L (3.5-5.1); SODIUM 130 MMOL/L (135-145); TOTAL CARBON DIOXIDE 22.5 MMOL/L (24-32); TOTAL PROTEIN 6.1 G/DL (6.4-8.2); eGFR 51 ML/MIN
[2017-10-21 07:05] VITALS: BP 139/67
[2017-10-21] MEDS: furosemide 10 MG/1 ML 10ml inj IV SCH ×2 (08:07→20:46)
[2017-10-21] MEDS: pantoprazole 40 MG vial IV SCH ×2 (08:07→20:47)
[2017-10-21] MEDS: lactobacillus rhamnosus 10,000 MMU CELLS/CAPSULE PO SCH ×2 (08:10→20:47)
[2017-10-21] MEDS: nystatin 15 GM powder TP SCH ×3 (08:10→20:56)
[2017-10-21] MEDS: docusate sod 100mg capsule PO SCH ×2 (08:10→20:00)
[2017-10-21] MEDS: spironolactone 50 MG tablet PO SCH (08:14)
[2017-10-21] MEDS: CefTRIAXone/D5W-Rocephin 1gm 50 ML IV SCH (08:15)
[2017-10-21 08:44] LABS: ANISOCYTOSIS 1+; PLATELET ESTIMATE DECREASED; POLYCHROMASIA 1+
[2017-10-21 08:45] LABS: TARGET CELLS FEW
[2017-10-21 11:30] VITALS: BP 135/68
[2017-10-21 19:15] VITALS: BP 136/83
[2017-10-21] MEDS: temazepam 15mg capsule PO PRN (20:47)
[2017-10-21 23:00] VITALS: BP 140/90
[2017-10-22] MEDS: HYDROcodone/acetaminophen 10/325mg tab PO PRN ×4 (00:05→20:36)
[2017-10-22] MEDS: lactulose 20gm/30ml cup PO SCH ×8 (04:00→20:00)
[2017-10-22 05:12] LABS: BASOPHILS % (AUTO) 0.4 % (0-1); EOSINOPHILS # (AUTO) 0.1 X10'3 (0-0.9); EOSINOPHILS % (AUTO) 1.6 % (0-6); HEMATOCRIT 29.5 % (42.0-52.0); HEMOGLOBIN 9.9 g/dl (14.0-17.9); LYMPHOCYTES # (AUTO) 1.6 X10'3 (1.1-4.8); LYMPHOCYTES % (AUTO) 22.8 % (21-51); MEAN CORPUSCULAR HEMOGLOBIN 37.1 PG (27.0-31.0); MEAN CORPUSCULAR HGB CONC 33.4 % (33.0-36.5); MEAN CORPUSCULAR VOLUME 110.9 FL (78-98); MEAN PLATELET VOLUME 7.7 FL (7.4-10.4); MONOCYTES # (AUTO) 0.6 X10'3 (0-0.9); MONOCYTES % (AUTO) 8.7 % (2-12); NEUTROPHILS # (AUTO) 4.7 X10'3 (1.8-7.7); NEUTROPHILS % (AUTO) 66.5 % (42-75); PLATELET COUNT 100 X10'3 (140-440); RED BLOOD COUNT 2.66 X10'6 (4.70-6.10); RED CELL DISTRIBUTION WIDTH 15.5 % (11.5-14.5)
[2017-10-22 05:37] LABS: ALANINE AMINOTRANSFERASE 46 U/L (12-78); ALBUMIN 1.9 G/DL (3.4-5.0); ALBUMIN/GLOBULIN RATIO 0.5 (1.1-1.5); ALKALINE PHOSPHATASE 118 IU/L (46-116); ANION GAP 7 (8-16); ASPARTATE AMINO TRANSFERASE 62 U/L (10-37); BILIRUBIN,TOTAL 5.4 MG/DL (0.1-1.0); BLOOD UREA NITROGEN 35 MG/DL (7-18); BUN/CREATININE RATIO 26.1 (5.4-32.0); CALCIUM 8.3 MG/DL (8.5-10.1); CHLORIDE 98 MMOL/L (99-107); CREATININE 1.34 MG/DL (0.60-1.10); GLUCOSE 100 MG/DL (70-104); MAGNESIUM 1.7 MG/DL (1.5-2.4); POTASSIUM 4.5 MMOL/L (3.5-5.1); SODIUM 132 MMOL/L (135-145); TOTAL CARBON DIOXIDE 26.7 MMOL/L (24-32); eGFR 55 ML/MIN
[2017-10-22] MEDS: furosemide 10 MG/1 ML 10ml inj IV SCH ×2 (07:08→20:37)
[2017-10-22] MEDS: pantoprazole 40 MG vial IV SCH (07:08)
[2017-10-22] MEDS: docusate sod 100mg capsule PO SCH ×2 (07:09→20:35)
[2017-10-22] MEDS: lactobacillus rhamnosus 10,000 MMU CELLS/CAPSULE PO SCH ×2 (07:09→20:35)
[2017-10-22] MEDS: CefTRIAXone/D5W-Rocephin 1gm 50 ML IV SCH (07:09)
[2017-10-22] MEDS: nystatin 15 GM powder TP SCH ×3 (07:10→20:43)
[2017-10-22] MEDS: spironolactone 50 MG tablet PO SCH (07:13)
[2017-10-22 07:30] VITALS: BP 143/74
[2017-10-22 11:59] VITALS: BP 124/66
[2017-10-22 19:00] VITALS: BP 168/93
[2017-10-22] MEDS: pantoprazole 40mg Tablet.DR PO SCH (20:36)
[2017-10-22] MEDS: temazepam 15mg capsule PO PRN (20:36)
[2017-10-22 23:30] VITALS: BP 138/81
[2017-10-23] MEDS: HYDROcodone/acetaminophen 10/325mg tab PO PRN ×4 (00:49→21:02)
[2017-10-23] MEDS: lactulose 20gm/30ml cup PO SCH ×5 (04:00→21:01)
[2017-10-23 05:35] LABS: BASOPHILS % (AUTO) 0.4 % (0-1); EOSINOPHILS # (AUTO) 0.1 X10'3 (0-0.9); EOSINOPHILS % (AUTO) 2.4 % (0-6); HEMATOCRIT 27.9 % (42.0-52.0); HEMOGLOBIN 9.5 g/dl (14.0-17.9); LYMPHOCYTES # (AUTO) 1.9 X10'3 (1.1-4.8); LYMPHOCYTES % (AUTO) 30.1 % (21-51); MEAN CORPUSCULAR HEMOGLOBIN 37.8 PG (27.0-31.0); MEAN CORPUSCULAR HGB CONC 34.2 % (33.0-36.5); MEAN CORPUSCULAR VOLUME 110.6 FL (78-98); MEAN PLATELET VOLUME 7.7 FL (7.4-10.4); MONOCYTES # (AUTO) 0.9 X10'3 (0-0.9); MONOCYTES % (AUTO) 13.9 % (2-12); NEUTROPHILS # (AUTO) 3.3 X10'3 (1.8-7.7); NEUTROPHILS % (AUTO) 53.2 % (42-75); PLATELET COUNT 99 X10'3 (140-440); RED BLOOD COUNT 2.52 X10'6 (4.70-6.10); WHITE BLOOD COUNT 6.3 X10'3 (4.5-11.0)
[2017-10-23 05:45] LABS: ALANINE AMINOTRANSFERASE 48 U/L (12-78); ALBUMIN 1.8 G/DL (3.4-5.0); ALKALINE PHOSPHATASE 134 IU/L (46-116); ANION GAP 5 (8-16); ASPARTATE AMINO TRANSFERASE 68 U/L (10-37); BILIRUBIN,TOTAL 4.2 MG/DL (0.1-1.0); BLOOD UREA NITROGEN 35 MG/DL (7-18); BUN/CREATININE RATIO 27.3 (5.4-32.0); CALCIUM 7.8 MG/DL (8.5-10.1); CHLORIDE 95 MMOL/L (99-107); CREATININE 1.28 MG/DL (0.60-1.10); GLUCOSE 111 MG/DL (70-104); MAGNESIUM 1.9 MG/DL (1.5-2.4); POTASSIUM 4.2 MMOL/L (3.5-5.1); SODIUM 126 MMOL/L (135-145); TOTAL CARBON DIOXIDE 26.3 MMOL/L (24-32); eGFR 58 ML/MIN
[2017-10-23 05:46] LABS: ALBUMIN/GLOBULIN RATIO 0.4 (1.1-1.5); TOTAL PROTEIN 5.9 G/DL (6.4-8.2)
[2017-10-23 07:05] VITALS: BP 135/72
[2017-10-23] MEDS: docusate sod 100mg capsule PO SCH ×2 (08:06→19:18)
[2017-10-23] MEDS: lactobacillus rhamnosus 10,000 MMU CELLS/CAPSULE PO SCH ×2 (08:06→19:18)
[2017-10-23] MEDS: pantoprazole 40mg Tablet.DR PO SCH ×3 (08:06→19:23)
[2017-10-23] MEDS: spironolactone 50 MG tablet PO SCH (08:07)
[2017-10-23] MEDS: CefTRIAXone/D5W-Rocephin 1gm 50 ML IV SCH (08:08)
[2017-10-23] MEDS: furosemide 10 MG/1 ML 10ml inj IV SCH ×2 (08:09→19:17)
[2017-10-23] MEDS: nystatin 15 GM powder TP SCH ×3 (08:19→21:02)
[2017-10-23] MEDS ORDERED: LIDOcaine 0.5% (5mg/ml) 50ml vial ONE (09:11)
[2017-10-23 09:24] VITALS: BP 135/72
[2017-10-23] MEDS ORDERED: albumin (human) 25% 100 ML IV solution IV ONE (10:10)
[2017-10-23 10:15] VITALS: BP 132/65
[2017-10-23] MEDS ORDERED: HYDROmorphone 1 mg/ml syringe ONE (10:47)
[2017-10-23 11:08] VITALS: BP 125/63
[2017-10-23 19:04] VITALS: BP 131/67
[2017-10-23] MEDS: temazepam 15mg capsule PO PRN (22:23)
[2017-10-23 23:30] VITALS: BP 130/67
[2017-10-24] MEDS: HYDROcodone/acetaminophen 10/325mg tab PO PRN ×2 (03:13→09:37)
[2017-10-24 05:47] LABS: BASOPHILS # (AUTO) 0.1 X10'3 (0-0.2); BASOPHILS % (AUTO) 1.6 % (0-1); EOSINOPHILS % (AUTO) 0.9 % (0-6); HEMATOCRIT 23.2 % (42.0-52.0); HEMOGLOBIN 8.2 g/dl (14.0-17.9); LYMPHOCYTES # (AUTO) 1.1 X10'3 (1.1-4.8); LYMPHOCYTES % (AUTO) 23.8 % (21-51); MEAN CORPUSCULAR HEMOGLOBIN 37.7 PG (27.0-31.0); MEAN CORPUSCULAR HGB CONC 35.5 % (33.0-36.5); MEAN CORPUSCULAR VOLUME 106.3 FL (78-98); MEAN PLATELET VOLUME 8.6 FL (7.4-10.4); MONOCYTES # (AUTO) 0.5 X10'3 (0-0.9); NEUTROPHILS % (AUTO) 63.7 % (42-75); PLATELET COUNT 66 X10'3 (140-440); RED BLOOD COUNT 2.18 X10'6 (4.70-6.10); RED CELL DISTRIBUTION WIDTH 17.5 % (11.5-14.5); WHITE BLOOD COUNT 4.8 X10'3 (4.5-11.0)
[2017-10-24 06:09] LABS: ANISOCYTOSIS 2+; BURR CELLS 2+; PLATELET ESTIMATE DECREASED
[2017-10-24 07:00] VITALS: BP 106/59
[2017-10-24 07:36] LABS: ALANINE AMINOTRANSFERASE 34 U/L (12-78); ALBUMIN/GLOBULIN RATIO 0.6 (1.1-1.5); ALKALINE PHOSPHATASE 120 IU/L (46-116); ANION GAP 6 (8-16); ASPARTATE AMINO TRANSFERASE 50 U/L (10-37); BILIRUBIN,TOTAL 3.3 MG/DL (0.1-1.0); BLOOD UREA NITROGEN 32 MG/DL (7-18); BUN/CREATININE RATIO 29.1 (5.4-32.0); CALCIUM 8.1 MG/DL (8.5-10.1); CHLORIDE 99 MMOL/L (99-107); GLUCOSE 128 MG/DL (70-104); MAGNESIUM 1.7 MG/DL (1.5-2.4); POTASSIUM 4.1 MMOL/L (3.5-5.1); SODIUM 132 MMOL/L (135-145); TOTAL CARBON DIOXIDE 27.5 MMOL/L (24-32); TOTAL PROTEIN 5.3 G/DL (6.4-8.2); eGFR 69 ML/MIN
[2017-10-24] MEDS: lactulose 20gm/30ml cup PO SCH (07:38)
[2017-10-24] MEDS: docusate sod 100mg capsule PO SCH (07:39)
[2017-10-24] MEDS: pantoprazole 40mg Tablet.DR PO SCH (07:39)
[2017-10-24] MEDS: spironolactone 50 MG tablet PO SCH (07:39)
[2017-10-24] MEDS: lactobacillus rhamnosus 10,000 MMU CELLS/CAPSULE PO SCH (07:39)
[2017-10-24] MEDS: CefTRIAXone/D5W-Rocephin 1gm 50 ML IV SCH (07:39)
[2017-10-24] MEDS: nystatin 15 GM powder TP SCH (07:40)
[2017-10-24] MEDS: furosemide 10 MG/1 ML 10ml inj IV SCH (08:01)
[2017-10-24] MEDS ORDERED: RIFA550T PO (10:29)
[2017-10-24] MEDS ORDERED: LACT10SO7 PO (10:29)
[2017-10-24 11:00] VITALS: BP 144/92
== END 2017-10-24 12:29 | disposition home health service (06) | DRG 280 ==
LOC: ER 18:47 → ED HOLD 21:39 → SUR 3N 22:58
PROVIDERS: ADMIT Family Medicine; ATTEND Family Medicine
PROC: 0W9G3ZZ Drainage of Peritoneal Cavity, Percutaneous Approach (ICD-10-PCS; principal; 2017-10-23)
DX: K70.31 Alcoholic cirrhosis of liver with ascites (principal); D68.9 Coagulation defect, unspecified; K85.90 Acute pancreatitis without necrosis or infection, unspecified; K76.6 Portal hypertension; I13.0 Hypertensive heart and chronic kidney disease with heart failure and stage 1 through stage 4 chronic kidney disease, or unspecified chronic kidney disease; I50.32 Chronic diastolic (congestive) heart failure; E87.1 Hypo-osmolality and hyponatremia; E88.09 Other disorders of plasma-protein metabolism, not elsewhere classified; E83.42 Hypomagnesemia; D69.59 Other secondary thrombocytopenia; E78.00 Pure hypercholesterolemia, unspecified; F10.10 Alcohol abuse, uncomplicated; F17.210 Nicotine dependence, cigarettes, uncomplicated; K72.10 Chronic hepatic failure without coma; N18.9 Chronic kidney disease, unspecified; Z83.3 Family history of diabetes mellitus; Z86.73 Personal history of transient ischemic attack (TIA), and cerebral infarction without residual deficits; Z68.41 Body mass index [BMI] 40.0-44.9, adult; Z79.899 Other long term (current) drug therapy; Z91.19 Patient's noncompliance with other medical treatment and regimen
CPT/HCPCS: 36415; 36600; 49083; 70450; 71045; 80053; 80156; 80305; 80320; 81003; 82140; 82803; 83605; 83690; 83735; 83880; 84100; 84145; 85018; 85025; 85610; 85730; 87040; 87070; 93005; 97110; 97116; 97162; 97530; 99285; A4315; A4353; A6212; A6213; A6223; A6449; C9113; J0696; J1170; J1940; J2001; J2060; J3475; J7030; P9047; Q0163

== ENCOUNTER 2017-10-25 23:46 | Emergency (ER) | payer MEDICAID ==
[~2017-10-25] VITALS: Ht 170.2 cm; Wt 109.1 kg
[~2017-10-25 23:46] MED LIST changes: -LACT10SO32 PO; +LACT10SO7 PO; +RIFA550T PO
[2017-10-26] MEDS ORDERED: ondansetron/PF 4mg/2ml inj IM ONE (01:00)
[2017-10-26] MEDS ORDERED: morphine 4 MG/ML inj SYRINge IM ONE (01:00)
[2017-10-26 01:36] VITALS: BP 138/79
== END 2017-10-26 01:46 | disposition home or self-care (01) ==
LOC: ER 23:47
DX: G89.29 Other chronic pain (principal); M54.5 Low back pain; K70.31 Alcoholic cirrhosis of liver with ascites; I10 Essential (primary) hypertension; E78.00 Pure hypercholesterolemia, unspecified; Z86.73 Personal history of transient ischemic attack (TIA), and cerebral infarction without residual deficits; Z79.899 Other long term (current) drug therapy
CPT/HCPCS: 96372; 99284; J2270; J2405

== ENCOUNTER 2017-11-02 16:55 | Emergency (ER) | payer MEDICAID ==
[~2017-11-02] VITALS: Ht 170.2 cm; Wt 118.0 kg
[2017-11-02] MEDS ORDERED: LIDOcaine 1.5% w/epinephrine 1:200,000 5ml ampul IJ ONE (18:15)
[2017-11-02] MEDS ORDERED: albumin (human) 25% 100 ML IV solution IV ONE (18:35)
[2017-11-02] MEDS ORDERED: morphine 4 MG/ML inj SYRINge IV ONE (19:10)
[2017-11-02 20:29] VITALS: BP 147/79
== END 2017-11-02 20:47 | disposition home or self-care (01) ==
LOC: ER 16:56
DX: R18.8 Other ascites (principal); I10 Essential (primary) hypertension; E78.00 Pure hypercholesterolemia, unspecified; G89.29 Other chronic pain; Z79.899 Other long term (current) drug therapy
CPT/HCPCS: 49083; 96374; 99285; A6449; J2270; J3490

== ENCOUNTER 2017-11-20 14:21 | Emergency (ER) | payer MEDICAID ==
[~2017-11-20] VITALS: Ht 172.7 cm; Wt 1.2 kg
[2017-11-20] MEDS ORDERED: LIDOcaine 1.5% w/epinephrine 1:200,000 5ml ampul IJ ONE (15:10)
[2017-11-20] MEDS ORDERED: albumin (human) 25% 100 ML IV solution IV ONE (15:45)
[2017-11-20 17:20] VITALS: BP 142/73
== END 2017-11-20 17:22 | disposition home or self-care (01) ==
LOC: ER 14:22
DX: R18.8 Other ascites (principal); E78.00 Pure hypercholesterolemia, unspecified; I10 Essential (primary) hypertension; G89.29 Other chronic pain; Z86.73 Personal history of transient ischemic attack (TIA), and cerebral infarction without residual deficits; Z79.899 Other long term (current) drug therapy
CPT/HCPCS: 49083; 96365; 99285; A6255; A6257; J3490; P9047

== ENCOUNTER 2017-12-01 17:20 | Emergency (ER) | payer MEDICAID ==
[~2017-12-01] VITALS: Ht 175.3 cm; Wt 120.5 kg
[2017-12-01 18:47] VITALS: BP 145/83
== END 2017-12-01 18:50 | disposition home or self-care (01) ==
LOC: ER 17:20
DX: K72.10 Chronic hepatic failure without coma (principal); E78.00 Pure hypercholesterolemia, unspecified; I10 Essential (primary) hypertension; G89.29 Other chronic pain; Z86.73 Personal history of transient ischemic attack (TIA), and cerebral infarction without residual deficits; Z79.899 Other long term (current) drug therapy
CPT/HCPCS: 99284

== ENCOUNTER 2017-12-02 18:59 | Emergency (ER) | payer MEDICAID ==
[~2017-12-02] VITALS: Ht 172.7 cm; Wt 109.0 kg
[2017-12-02 19:08] VITALS: BP 123/55
== END 2017-12-02 20:22 | disposition home or self-care (01) ==
LOC: ER 18:59
DX: G89.29 Other chronic pain (principal); E78.00 Pure hypercholesterolemia, unspecified; I10 Essential (primary) hypertension; Z86.73 Personal history of transient ischemic attack (TIA), and cerebral infarction without residual deficits; Z79.899 Other long term (current) drug therapy
CPT/HCPCS: 99284

== ENCOUNTER 2017-12-17 09:54 | Emergency (ER) | payer MEDICAID ==
[~2017-12-17] VITALS: Ht 177.8 cm; Wt 115.0 kg
[2017-12-17 11:01] LABS: BASOPHILS % (AUTO) 0.2 % (0-1); EOSINOPHILS % (AUTO) 0.5 % (0-6); HEMATOCRIT 25.7 % (42.0-52.0); LYMPHOCYTES # (AUTO) 0.8 X10'3 (1.1-4.8); LYMPHOCYTES % (AUTO) 20.3 % (21-51); MEAN CORPUSCULAR HEMOGLOBIN 37.9 PG (27.0-31.0); MEAN CORPUSCULAR HGB CONC 35.1 % (33.0-36.5); MEAN CORPUSCULAR VOLUME 107.9 FL (78-98); MEAN PLATELET VOLUME 8.4 FL (7.4-10.4); MONOCYTES # (AUTO) 0.7 X10'3 (0-0.9); MONOCYTES % (AUTO) 16.9 % (2-12); NEUTROPHILS # (AUTO) 2.5 X10'3 (1.8-7.7); NEUTROPHILS % (AUTO) 62.1 % (42-75); PLATELET COUNT 67 X10'3 (140-440); RED BLOOD COUNT 2.38 X10'6 (4.70-6.10); RED CELL DISTRIBUTION WIDTH 17.2 % (11.5-14.5)
[2017-12-17 11:14] LABS: ALANINE AMINOTRANSFERASE 46 U/L (12-78); ALBUMIN 2.7 G/DL (3.4-5.0); ALKALINE PHOSPHATASE 131 IU/L (46-116); ANION GAP 12 (8-16); ASPARTATE AMINO TRANSFERASE 82 U/L (10-37); BILIRUBIN,TOTAL 12.1 MG/DL (0.1-1.0); BLOOD UREA NITROGEN 28 MG/DL (7-18); BUN/CREATININE RATIO 15.1 (5.4-32.0); CALCIUM 8.7 MG/DL (8.5-10.1); CHLORIDE 91 MMOL/L (99-107); CREATININE 1.85 MG/DL (0.60-1.10); GLUCOSE 134 MG/DL (70-104); LIPASE 393 U/L (73-393); SODIUM 127 MMOL/L (135-145); eGFR 38 ML/MIN
[2017-12-17 11:15] LABS: ALBUMIN/GLOBULIN RATIO 0.6 (1.1-1.5); POTASSIUM 3.5 MMOL/L (3.5-5.1); TOTAL PROTEIN 6.9 G/DL (6.4-8.2)
[2017-12-17 13:19] VITALS: BP 96/47
[2017-12-17] MEDS ORDERED: acetaminophen 650mg rectal suppository RC PRN (14:50)
[2017-12-17] MEDS ORDERED: potassium Cl 40MEQ/NS 500ml 500 ML IV PRN ×2 (14:50)
[2017-12-17] MEDS ORDERED: magnesium Cl slow-release 64mg tablet PO PRN (14:50)
[2017-12-17] MEDS ORDERED: ondansetron/PF 4mg/2ml inj IV PRN (14:50)
[2017-12-17] MEDS ORDERED: magnesium 4gm in 100ml NS 100 ML IV PRN (14:50)
[2017-12-17] MEDS ORDERED: magnesium 1gm/100ml D5W IVPB 100 ML IV PRN (14:50)
[2017-12-17] MEDS ORDERED: potassium Cl 20 mEq SR tablet PO PRN ×2 (14:50)
[2017-12-17] MEDS ORDERED: calamine LOTION TP PRN (16:15)
[2017-12-17] MEDS ORDERED: lactulose 20gm/30ml cup PO SCH (21:00)
[2017-12-18] MEDS ORDERED: K and/or MAG REPLACEMENT MC SCH (08:00)
[2017-12-18] MEDS ORDERED: CefTRIAXone/D5W-Rocephin 1gm 50 ML IV SCH (08:00)
[2017-12-18] MEDS ORDERED: SPIR25TA5 OP (15:14)
== END 2017-12-17 15:39 | disposition left against medical advice (07) ==
LOC: ER 09:55
DX: K72.90 Hepatic failure, unspecified without coma (principal); E87.1 Hypo-osmolality and hyponatremia; N17.9 Acute kidney failure, unspecified; E78.00 Pure hypercholesterolemia, unspecified; I10 Essential (primary) hypertension; G89.29 Other chronic pain; R21 Rash and other nonspecific skin eruption; R41.0 Disorientation, unspecified; Z86.73 Personal history of transient ischemic attack (TIA), and cerebral infarction without residual deficits; Z79.899 Other long term (current) drug therapy
CPT/HCPCS: 36415; 80053; 82140; 83690; 85025; 99284